=== PATIENT | female | born 1935 | race Caucasian/White ===

== ENCOUNTER 2018-06-27 11:40 | Inpatient (IN) | payer MEDICARE ==
[~2018-06-27] VITALS: Ht 170.2 cm; Wt 101.3 kg
[~2018-06-27 11:40] MED LIST: ACULAR5 ML OD; AMIODARONE HCL200 M1 PO; AMLODIPINE BESYL5 MG PO; ASPIR-LOW81 MG PO; ATORVASTATIN CA20 MG PO; CALCIUM + D 601 EAC1; CALCIUM + VITA1 EACH PO; CETIRIZINE HCL10 MG PO; CLARITIN10 M3 PO; COUMADIN2.5 MG PO; FUROSEMIDE40 MG PO; FUROSEMIDE80 MG PO; GLIMEPIRIDE2 MG PO; HEMOCYTE PLUS1 EACH PO; HYDROCHLOROTHIA25 MG PO; LEVAQUIN500 MG PO; METOPROLOL TART25 MG PO; METOPROLOL TART50 MG PO; MOBIC15 MG PO; PEPCID20 MG PO; POTASSIUM CHLO10 ME1 PO; POTASSIUM CHLO10 MEQ PO; PRED FORTE1 ML OD; VIGAMOX3 ML OD; WARFARIN SODIUM3 MG PO; WARFARIN SODIUM4 MG PO; Z.0.AMLODIPINE BESYL PO; Z.0.ASPIRIN CHEW81 M PO; Z.0.ATORVASTATIN CA2 PO; Z.0.CATAPRES0.2 MG PO; Z.0.COUMADIN5 MG PO; Z.0.DIGOXIN250 MCG PO; Z.0.DIOVAN320 MG PO; Z.0.GLIMEPIRIDE1 MG PO; Z.0.HYDROCHLOROTHIA2 PO; Z.0.LASIX40 MG PO; Z.0.METOPROLOL TART5 PO; ZAROXOLYN5 MG PO; [UNRECOGNIZED DRUG - OTHER]; [UNRECOGNIZED DRUG - OTHER] PO
[2018-06-27] MEDS ORDERED: VANCOMYCIN 1GM/NS 250 ML 250 ML IV STA (12:24)
[2018-06-27] MEDS ORDERED: HYDROCODONE/APAP 10MG-325MG TAB PO ONE (12:30)
--- NOTE | 2018-06-27 14:39 | Diagnostic Imaging Report ---
Exam: Right foot series, 3 views. Clinical History: Query osteomyelitis Comparison: None. Findings: 3 views of the right foot. There is normal bone mineralization. No evidence of fracture or acute malalignment. Hammertoe deformities noted. Possible erosion involving the great toe distal phalangeal tuft. No evidence of periosteal reaction or other bony destructive changes. Mild scattered degenerative changes in the interphalangeal joints.. Lis franc alignment is normal. Soft tissue edema in the hindfoot. Impression: Possible erosion involving the great toe distal phalangeal tuft, of uncertain chronicity. No evidence of periosteal reaction or other bony destructive change specific for osteomyelitis. If there is clinical suspicion for osteomyelitis, MRI would be more sensitive for evaluation. Soft tissue edema in the hindfoot. Signed by: Dr. Neftaly Guerrier MD on 06/27/2018 2:36 PM
[2018-06-27 14:57] LABS: BASOPHILS % 0.3 % (0.0-1.0); EOSINOPHILS # (AUTO) 0.1 (0.0-0.4); EOSINOPHILS % 0.5 % (0.0-6.0); HEMATOCRIT 40.4 % (34.2-44.1); HEMOGLOBIN 13.6 g/dL (12.0-16.0); LYMPHOCYTES # (AUTO) 1.2 (1.0-3.2); LYMPHOCYTES % 10.5 % (18.0-39.1); MEAN CORPUSCULAR HEMOGLOBIN 30.6 pg (28-32); MEAN CORPUSCULAR HGB CONC 33.7 g/dL (31-35); MEAN CORPUSCULAR VOLUME 90.8 fL (81-99); MONOCYTES # (AUTO) 0.9 (0.2-0.8); MONOCYTES % 7.4 % (4.4-11.3); NEUTROPHILS # (AUTO) 9.5 (2.1-6.9); NEUTROPHILS % 80.6 % (38.7-80.0); PLATELET COUNT 201 x10e3/uL (140-360); RED BLOOD COUNT 4.45 x10e6/uL (3.6-5.1); RED CELL DISTRIBUTION WIDTH 14.5 % (11.7-14.4)
[2018-06-27 15:44] LABS: ALBUMIN 3.4 g/dL (3.5-5.0); ALBUMIN/GLOBULIN RATIO 0.8 (0.8-2.0); ANION GAP 18.2 mmol/L (8-16); CALCIUM 10.7 mg/dL (8.4-10.2); CREATININE, SERUM 1.34 mg/dL (0.57-1.11); POTASSIUM 3.2 mmol/L (3.5-5.1)
[2018-06-27 15:46] LABS: INR 1.37
[2018-06-27] MEDS ORDERED: ONDANSETRON HCL INJ 2 MG/ML VIAL IV PRN (16:15)
[2018-06-27] MEDS ORDERED: SODIUM CHLORIDE FLUSH 10 ML SYR INJ PRN (16:15)
[2018-06-27] MEDS ORDERED: MORPHINE SULFATE 2 MG/ML SYR IV PRN (16:15)
[2018-06-27] MEDS ORDERED: POTASSIUM CHLORIDE 20 MEQ TAB CR PO ONE (16:21)
[2018-06-27] MEDS ORDERED: DEXTROSE 50% SYRINGE 50 ML IV PRN (16:45)
[2018-06-27] MEDS ORDERED: MORPHINE SULFATE INJ 4 MG/ML INJ IV PRN (16:45)
--- OUTSIDE RECORDS SUMMARY | 2018-06-27 18:21 | XMS REPORT ---
Author [facility] Address Unknown Phone Unavailable Care Team Providers Care Director Of Sports Performance Name Role Phone RANJEETSOBIA Agnieszka KAPLAN Unavailable Unavailable Problems This patient has no known problems. Allergies, Adverse Reactions, Alerts This patient has no known allergies or adverse reactions. Medications This patient has no known medications. Results Test Description Test Time Test Comments Text Results Atomic Results Result Comments FOOT RIGHT COMPLETE 2018-06-27 14:30:00 [place] [address] Patient Name: APRIL JACOB MR #: [id number] : 1935 Age/Sex: 82/F Req #: [id number] Adm Physician: Ordered by: LISANDRA HERNANDEZ MANAGER CONSTRUCTION Report #: [id number] Location: ER Room/Bed: Procedure: [id number] DX/FOOT RIGHT COMPLETE Exam Date: 06/27/18 Exam Time: 1405 REPORT STATUS: Signed Exam: Right foot series, 3 views. Clinical History: Query osteomyelitis Comparison: None. Findings: 3 views of the right foot. There is normal bone mineralization. No evidence of fracture or acute malalignment. Hammertoe deformities noted. Possible erosion involving the great toe distal phalangeal tuft. No evidence of periosteal reaction or other bony destructive changes. Mild scattered degenerative changes in the interphalangeal joints.. Lis franc alignment is normal. Soft tissue edema in the hindfoot. Impression: Possible erosion involving the great toe distal phalangeal tuft, of uncertain chronicity. No evidence of periosteal reaction or other bony destructive change specific for osteomyelitis. If there is clinical suspicion for osteomyelitis, MRI would be more sensitive for evaluation. Soft tissue edema in the hindfoot. Signed by: Dr. Linda Bucio MD on 06/27/2018 2:36 PM Dictated By: LINDA BUCIO MD [id number] Transcribed B y: SHENG on 06/27/18 1436 COPY TO: LISANDRA HERNANDEZ NP
[2018-06-27] MEDS ORDERED: DIOVAN80 MG PO (19:09)
[2018-06-27] MEDS ORDERED: METOPROLOL TARTRATE 25 MG TAB PO ONE (19:15)
[2018-06-27 19:50] VITALS: BP 95/57
[2018-06-27 20:00] VITALS: BP 95/57
[2018-06-27] MEDS: INSULIN REGULAR, HUMAN 100 UNIT/1 ML 3ML VIAL SQ SCH (21:00)
[2018-06-28] VITALS (7 sets, daily range): BP systolic 93–123; BP diastolic 49–58
[2018-06-28] MEDS ORDERED: SODIUM CHLORIDE 0.9% 250ML 250 ML ONE (01:30)
[2018-06-28] MEDS: VANCOMYCIN 1GM/NS 250 ML 250 ML IV SCH ×2 (01:32→15:08)
[2018-06-28 05:30] LABS: BASOPHILS % 0.3 % (0.0-1.0); EOSINOPHILS # (AUTO) 0.1 (0.0-0.4); EOSINOPHILS % 1.2 % (0.0-6.0); HEMOGLOBIN 11.1 g/dL (12.0-16.0); LYMPHOCYTES # (AUTO) 0.9 (1.0-3.2); LYMPHOCYTES % 9.8 % (18.0-39.1); MEAN CORPUSCULAR HEMOGLOBIN 30.3 pg (28-32); MEAN CORPUSCULAR HGB CONC 33.6 g/dL (31-35); MEAN CORPUSCULAR VOLUME 90.2 fL (81-99); MONOCYTES # (AUTO) 0.9 (0.2-0.8); MONOCYTES % 9.1 % (4.4-11.3); NEUTROPHILS # (AUTO) 7.4 (2.1-6.9); NEUTROPHILS % 79.1 % (38.7-80.0); PLATELET COUNT 163 x10e3/uL (140-360); RED BLOOD COUNT 3.66 x10e6/uL (3.6-5.1); RED CELL DISTRIBUTION WIDTH 14.1 % (11.7-14.4)
[2018-06-28 06:01] LABS: ALBUMIN 2.9 g/dL (3.5-5.0); ALBUMIN/GLOBULIN RATIO 0.9 (0.8-2.0); CALCIUM 9.4 mg/dL (8.4-10.2); CREATININE, SERUM 1.44 mg/dL (0.57-1.11)
[2018-06-28] MEDS: ATORVASTATIN 20 MG TAB PO SCH (08:45)
[2018-06-28] MEDS: FAMOTIDINE 20 MG TAB PO SCH (08:45)
[2018-06-28] MEDS: FUROSEMIDE 40 MG TAB PO SCH ×2 (08:45→17:07)
[2018-06-28] MEDS: METOLAZONE 5 MG TAB PO SCH (08:45)
[2018-06-28] MEDS: GLIMEPIRIDE 2 MG TAB PO SCH (08:46)
[2018-06-28] MEDS: POTASSIUM CHLORIDE 10MEQ EA PO SCH ×2 (08:48→17:07)
[2018-06-28] MEDS ORDERED: METOPROLOL TARTRATE 25 MG TAB PO SCH ×2 (09:00→17:00)
[2018-06-28] MEDS ORDERED: VALSARTAN 80 MG TAB PO SCH (09:00)
[2018-06-28] MEDS: INSULIN REGULAR, HUMAN 100 UNIT/1 ML 3ML VIAL SQ SCH ×4 (10:15→21:00)
[2018-06-28] MEDS ORDERED: PIPERACILLIN/TAZO 2.25 GM 50 ML IV SCH (14:00)
[2018-06-28] MEDS ORDERED: VANCOMYCIN HCL IV SCH (15:30)
[2018-06-28] MEDS ORDERED: SODIUM CHLORIDE 0.9% IV SCH (15:30)
[2018-06-28] MEDS ORDERED: CEFEPIME HCL 1 GM VIAL IV SCH (15:30)
--- NOTE | 2018-06-28 16:21 | Consultation ---
DATE OF CONSULTATION: REASON FOR CONSULTATION: Cellulitis of the right foot. Thank you so much for asking me to see this patient. HISTORY OF PRESENT ILLNESS: This patient is a very pleasant 82-year-old female with history of obesity, history of diabetes mellitus. The patient was admitted with redness and swelling of her right foot. There is no history of trauma, started about 3 to 4 days ago. Patient came to the emergency room where she was admitted. She was started on Zosyn and vancomycin. Infectious disease was consulted. MEDICATIONS: She is currently on insulin, Amaryl, Zaroxolyn, Lasix, Pepcid, Coumadin, and Lopressor. PAST MEDICAL HISTORY: Obesity, diabetes mellitus, hypertension, hypercholesterolemia. ALLERGIES: NKA. SOCIAL HISTORY: There is no smoking, drug abuse, or alcohol abuse. FAMILY HISTORY: Hypertension and diabetes. REVIEW OF SYSTEMS: At the present time; HEENT: Negative. PULMONARY: Negative. CARDIAC: Negative. : Negative. SKIN: There is no other rash. LABORATORY DATA: White count on admission 11.8, hemoglobin is 13.6. Sodium 135, potassium 4.0, creatinine 1.44, glucose 131. PHYSICAL EXAMINATION GENERAL: She is currently alert, oriented. Does not seem to be in acute distress. VITALS: Stable, currently afebrile. HEENT: She does not appear icteric. NECK: Supple. CHEST: Clear. COR: S1, S2. No S3, S4, or murmur. ABDOMEN: Soft, obese. No tenderness. No hepatosplenomegaly. EXTREMITIES: The leg, there is erythema. There is induration involving the right foot. IMPRESSION 1. Cellulitis of the right foot. 2. Chronic kidney disease. 3. Diabetes. 4. Obesity. Agree with vancomycin. Discontinue the cefepime. We will adjust vancomycin to 1 gram q.24. Follow up with levels. Obtain trough with the 4th dose. Recheck CBC. Recheck Chem panel. Other medical problems as above seem to be stable. We will follow. Job#: [id number] LPA
[2018-06-28] MEDS ORDERED: WARFARIN SOD 2.5 MG TAB PO SCH (17:00)
[2018-06-28] MEDS: CEFEPIME 1GM/NS 0.9% 50 ML 50 ML IV SCH (17:06)
[2018-06-28] MEDS: METOPROLOL TARTRATE 50 MG TAB PO SCH (17:08)
[2018-06-28] MEDS: WARFARIN SOD 2 MG TAB PO SCH (17:10)
--- NOTE | 2018-06-28 18:07 | Consultation ---
DATE OF CONSULTATION: CARDIOLOGY CONSULTATION REASON FOR CONSULTATION: Ventricular tachycardia. HISTORY OF PRESENT ILLNESS: This is an 82-year-old woman with a history of hypertension, hyperlipidemia, chronic atrial fibrillation on warfarin, congestive heart failure who presented with worsening right lower extremity cellulitis. Currently, she is denying any cardiovascular symptoms other than lower extremity swelling and pain of the right lower extremity. She denies any chest pain, palpitations, shortness of breath, or syncopal events. Overnight, patient was noted to have nonsustained ventricular tachycardia. She has chronic atrial fibrillation and rate controlled at home. She is on warfarin with no evidence of bleeding complications. REVIEW OF SYSTEMS: A 12-point review of systems was conducted and is negative otherwise as above in the HPI. PAST MEDICAL HISTORY: As stated above in the HPI. PAST SURGICAL HISTORY: None recently reported. PAST FAMILY HISTORY: No premature coronary artery disease or sudden cardiac . SOCIAL HISTORY: No illicit drug use, alcohol use, or tobacco use. ALLERGIES: NO KNOWN DRUG ALLERGIES. MEDICATIONS: See medication reconciliation form. PHYSICAL EXAMINATION VITAL SIGNS: Temperature is 98.1, heart rate is 95, respirations are 20, blood pressure is 102/49, oxygen saturation is 97% on room air. GENERAL: She is elderly woman, in no apparent distress. NECK: No JVD. No bruits. CARDIOVASCULAR: She is irregularly irregular, normal rate. No murmurs appreciated. LUNGS: Diminished breath sounds at bilateral bases. ABDOMEN: Soft and obese. EXTREMITIES: Edema. SKIN: There is right lower extremity cellulitis. NEUROLOGIC: No focal deficits noted. LABORATORY DATA: Reviewed. Potassium 4, creatinine 1.44. Hemoglobin 11. TELEMETRY: Monitoring revealed atrial fibrillation with ventricular response and nonsustained ventricular tachycardia. IMPRESSION 1. Nonsustained ventricular tachycardia. 2. Atrial fibrillation. 3. Hypertension. 4. Hyperlipidemia. 5. Congestive heart failure. 6. Cellulitis. Recommend decreasing her valsartan to allow up titration of metoprolol to better rate control and suppress arrhythmias. Please check magnesium and thyroid function panel. Continue warfarin for therapeutic anticoagulation. Otherwise, continue antibiotic treatments per primary team. Thank you for the consultation. We will follow along with you. Job#: [id number] YEISON
[2018-06-29] VITALS (7 sets, daily range): BP systolic 104–140; BP diastolic 51–71
[2018-06-29] MEDS: CEFEPIME 1GM/NS 0.9% 50 ML 50 ML IV SCH ×2 (03:51→16:23)
[2018-06-29] MEDS: FUROSEMIDE 40 MG TAB PO SCH ×3 (05:00→21:13)
[2018-06-29 05:14] LABS: BASOPHILS % 0.5 % (0.0-1.0); EOSINOPHILS # (AUTO) 0.2 (0.0-0.4); EOSINOPHILS % 1.8 % (0.0-6.0); HEMATOCRIT 34.9 % (34.2-44.1); HEMOGLOBIN 11.6 g/dL (12.0-16.0); LYMPHOCYTES # (AUTO) 0.8 (1.0-3.2); LYMPHOCYTES % 9.5 % (18.0-39.1); MEAN CORPUSCULAR HEMOGLOBIN 30.4 pg (28-32); MEAN CORPUSCULAR HGB CONC 33.2 g/dL (31-35); MEAN CORPUSCULAR VOLUME 91.4 fL (81-99); MONOCYTES # (AUTO) 0.7 (0.2-0.8); MONOCYTES % 8.7 % (4.4-11.3); NEUTROPHILS # (AUTO) 6.6 (2.1-6.9); NEUTROPHILS % 79.1 % (38.7-80.0); PLATELET COUNT 149 x10e3/uL (140-360); RED BLOOD COUNT 3.82 x10e6/uL (3.6-5.1); RED CELL DISTRIBUTION WIDTH 14.1 % (11.7-14.4)
[2018-06-29 05:27] LABS: INR 1.39; PROTHROMBIN TIME 18.2 seconds (11.9-14.5)
[2018-06-29 06:14] LABS: ANION GAP 15.7 mmol/L (8-16); CALCIUM 9.4 mg/dL (8.4-10.2); CREATININE, SERUM 1.51 mg/dL (0.57-1.11)
[2018-06-29 06:27] LABS: POTASSIUM 2.7 mmol/L (3.5-5.1)
[2018-06-29] MEDS ORDERED: POTASSIUM CHLORIDE 20 MEQ TAB CR PO NR ×2 (06:45→11:00)
[2018-06-29] MEDS: INSULIN REGULAR, HUMAN 100 UNIT/1 ML 3ML VIAL SQ SCH ×4 (07:30→21:46)
[2018-06-29] MEDS: POTASSIUM CHLORIDE 10MEQ EA PO SCH ×2 (08:38→16:50)
[2018-06-29] MEDS: METOLAZONE 5 MG TAB PO SCH (08:44)
[2018-06-29] MEDS: GLIMEPIRIDE 2 MG TAB PO SCH (08:44)
[2018-06-29] MEDS: ATORVASTATIN 20 MG TAB PO SCH (08:44)
[2018-06-29] MEDS: VALSARTAN 80 MG TAB PO SCH (08:44)
[2018-06-29] MEDS: METOPROLOL TARTRATE 50 MG TAB PO SCH ×2 (08:44→16:51)
[2018-06-29] MEDS: FAMOTIDINE 20 MG TAB PO SCH (08:44)
[2018-06-29] MEDS ORDERED: ACETAMINOPHEN 325 MG TAB PO PRN (13:15)
--- NOTE | 2018-06-29 13:28 | Progress Note ---
DATE: June 29, 2018 CARDIOLOGY PROGRESS NOTE SUBJECTIVE: No major events overnight. Denies any chest pain or shortness of breath. OBJECTIVE VITAL SIGNS: Temperature 97.9, pulse 93, respiratory rate 20, blood pressure 104/51, satting 96% on room air. GENERAL: Obese elderly white female in no acute distress. CARDIOVASCULAR: Difficult exam due to body habitus. Regular rate and rhythm. No murmurs, rubs or gallops. Palpable carotid pulses. Palpable radial pulses. EXTREMITIES: Two plus lower extremity edema with lymphedema changes. LUNGS: Diminished breath sounds in bilateral bases. ABDOMEN: Soft, obese and nontender. NEURO AND PSYCH: Alert and oriented to person, place, and time. Normal affect. MEDICATIONS: Reviewed. LABORATORY DATA: Reviewed. Telemetry data shows atrial fibrillation. Nonsustained VT. ASSESSMENT AND PLAN 1. Nonsustained ventricular tachycardia. 2. Atrial fibrillation, chronic. 3. Hypertension. 4. Hyperlipidemia. 5. Chronic congestive heart failure. 6. Lower extremity cellulitis. 7. Lower extremity edema. Continue current cardiovascular medications. Gentle diuretics and wraps to manage lower extremity edema. Continue warfarin for atrial fibrillation. Antibiotics per primary team. Thank you for this consult. Will continue to follow. Job#: [id number] RIYA
[2018-06-29] MEDS ORDERED: VANCOMYCIN 1GM/NS 250 ML 250 ML IV SCH (15:00)
[2018-06-29] MEDS: WARFARIN SOD 2 MG TAB PO SCH (16:50)
[2018-06-30] VITALS (8 sets, daily range): BP systolic 98–135; BP diastolic 54–61
[2018-06-30] MEDS: CEFEPIME 1GM/NS 0.9% 50 ML 50 ML IV SCH ×2 (03:36→17:30)
[2018-06-30 06:20] LABS: ANION GAP 14.4 mmol/L (8-16); CALCIUM 9.4 mg/dL (8.4-10.2); CREATININE, SERUM 1.18 mg/dL (0.57-1.11)
[2018-06-30 06:45] LABS: POTASSIUM 2.4 mmol/L (3.5-5.1)
[2018-06-30] MEDS: INSULIN REGULAR, HUMAN 100 UNIT/1 ML 3ML VIAL SQ SCH ×4 (07:30→21:00)
[2018-06-30 08:19] LABS: BASOPHILS % 0.5 % (0.0-1.0); EOSINOPHILS # (AUTO) 0.2 (0.0-0.4); EOSINOPHILS % 2.1 % (0.0-6.0); HEMATOCRIT 34.3 % (34.2-44.1); HEMOGLOBIN 11.7 g/dL (12.0-16.0); LYMPHOCYTES # (AUTO) 0.7 (1.0-3.2); LYMPHOCYTES % 8.5 % (18.0-39.1); MEAN CORPUSCULAR HGB CONC 34.1 g/dL (31-35); MEAN CORPUSCULAR VOLUME 90.7 fL (81-99); MONOCYTES # (AUTO) 0.7 (0.2-0.8); MONOCYTES % 9.4 % (4.4-11.3); NEUTROPHILS # (AUTO) 6.1 (2.1-6.9); NEUTROPHILS % 78.9 % (38.7-80.0); PLATELET COUNT 166 x10e3/uL (140-360); RED BLOOD COUNT 3.78 x10e6/uL (3.6-5.1); RED CELL DISTRIBUTION WIDTH 14.1 % (11.7-14.4)
[2018-06-30] MEDS: POTASSIUM CHLORIDE 10MEQ EA PO SCH ×2 (09:05→16:33)
[2018-06-30] MEDS: METOLAZONE 5 MG TAB PO SCH (09:05)
[2018-06-30] MEDS: FUROSEMIDE 40 MG TAB PO SCH ×2 (09:05→21:00)
[2018-06-30] MEDS: METOPROLOL TARTRATE 50 MG TAB PO SCH ×2 (09:05→16:34)
[2018-06-30] MEDS: VALSARTAN 80 MG TAB PO SCH (09:05)
[2018-06-30] MEDS: FAMOTIDINE 20 MG TAB PO SCH (09:05)
[2018-06-30] MEDS: GLIMEPIRIDE 2 MG TAB PO SCH (09:05)
[2018-06-30] MEDS: ATORVASTATIN 20 MG TAB PO SCH (09:05)
[2018-06-30] MEDS ORDERED: POTASSIUM CHLORIDE 20 MEQ TAB CR PO STA (09:46)
[2018-06-30] MEDS ORDERED: MAGNESIUM SULFATE 2GM/50ML 50 ML IV ONE ×2 (10:00→14:00)
[2018-06-30] MEDS: POTASSIUM CHLORIDE 20 MEQ TAB CR PO SCH (14:23)
[2018-06-30] MEDS: WARFARIN SOD 2 MG TAB PO SCH (16:33)
[2018-06-30] MEDS: VANCOMYCIN 1GM/NS 250 ML 250 ML IV SCH (18:20)
[2018-06-30] MEDS ORDERED: POTASSIUM CHLORIDE 20 MEQ TAB CR PO SCH (22:00)
[2018-07-01] VITALS (7 sets, daily range): BP systolic 112–135; BP diastolic 56–66
[2018-07-01] MEDS: CEFEPIME 1GM/NS 0.9% 50 ML 50 ML IV SCH ×2 (03:36→16:10)
[2018-07-01 06:11] LABS: ALBUMIN 2.9 g/dL (3.5-5.0); ALBUMIN/GLOBULIN RATIO 0.7 (0.8-2.0); ANION GAP 14.8 mmol/L (8-16); CALCIUM 9.5 mg/dL (8.4-10.2); CREATININE, SERUM 1.31 mg/dL (0.57-1.11)
[2018-07-01 06:21] LABS: POTASSIUM 2.8 mmol/L (3.5-5.1)
[2018-07-01] MEDS: INSULIN REGULAR, HUMAN 100 UNIT/1 ML 3ML VIAL SQ SCH ×4 (07:30→20:48)
[2018-07-01] MEDS: VALSARTAN 80 MG TAB PO SCH (09:06)
[2018-07-01] MEDS: ATORVASTATIN 20 MG TAB PO SCH (09:06)
[2018-07-01] MEDS: POTASSIUM CHLORIDE 10MEQ EA PO SCH ×2 (09:06→16:10)
[2018-07-01] MEDS: GLIMEPIRIDE 2 MG TAB PO SCH (09:06)
[2018-07-01] MEDS: FUROSEMIDE 40 MG TAB PO SCH ×2 (09:06→20:47)
[2018-07-01] MEDS: METOLAZONE 5 MG TAB PO SCH (09:07)
[2018-07-01] MEDS: METOPROLOL TARTRATE 50 MG TAB PO SCH ×2 (09:07→16:10)
[2018-07-01] MEDS: FAMOTIDINE 20 MG TAB PO SCH (09:07)
[2018-07-01] MEDS ORDERED: POTASSIUM CHLORIDE 20 MEQ TAB CR PO STA (13:56)
--- NOTE | 2018-07-01 16:05 | Progress Note ---
DATE: July 01, 2018 CARDIOLOGY PROGRESS NOTE SUBJECTIVE: No major events overnight. OBJECTIVE VITAL SIGNS: Temperature 97.7, pulse 78, respiratory rate 18, blood pressure 121/62, satting 99%. GENERAL: Elderly white female in no acute distress. CARDIOVASCULAR: Regular rate and rhythm. No murmurs, rubs or gallops. LUNGS: Clear to auscultation bilaterally. ABDOMEN: Soft, obese, nontender. NEURO AND PSYCH: Alert and oriented to person, place and time. Normal affect. INPATIENT MEDICATIONS: Reviewed. LABORATORY DATA: Reviewed. TELEMETRY DATA: Reviewed. Shows atrial fibrillation, rate controlled. ASSESSMENT AND PLAN 1. Nonsustained ventricular tachycardia. 2. Atrial fibrillation, chronic. 3. Hypertension. 4. Hyperlipidemia. 5. Chronic diastolic congestive heart failure. 6. Lower extremity cellulitis. 7. Lower extremity edema. PLAN: Continue current cardiovascular medications. Gentle diuretics and wraps to manage lower extremity edema. Continue warfarin for anticoagulation. Antibiotics per primary team. Thank you for this consult. We will continue to follow. Job#: [id number]
[2018-07-01] MEDS: WARFARIN SOD 2 MG TAB PO SCH (16:10)
[2018-07-01] MEDS: VANCOMYCIN 1GM/NS 250 ML 250 ML IV SCH (17:20)
[2018-07-01] MEDS ORDERED: POTASSIUM CHLORIDE 20 MEQ TAB CR PO ONE (18:00)
[2018-07-02] VITALS (7 sets, daily range): BP systolic 97–149; BP diastolic 56–73
[2018-07-02] MEDS: CEFEPIME 1GM/NS 0.9% 50 ML 50 ML IV SCH ×2 (03:19→16:18)
[2018-07-02 06:46] LABS: ANION GAP 15.7 mmol/L (8-16); CALCIUM 9.5 mg/dL (8.4-10.2); CREATININE, SERUM 1.21 mg/dL (0.57-1.11); MAGNESIUM 1.7 MG/DL (1.3-2.1)
[2018-07-02 06:59] LABS: POTASSIUM 2.7 mmol/L (3.5-5.1)
[2018-07-02] MEDS: INSULIN REGULAR, HUMAN 100 UNIT/1 ML 3ML VIAL SQ SCH ×4 (07:30→21:00)
[2018-07-02] MEDS ORDERED: POTASSIUM CHLORIDE 20 MEQ TAB CR PO SCH (07:45)
[2018-07-02] MEDS: FAMOTIDINE 20 MG TAB PO SCH (08:59)
[2018-07-02] MEDS: ATORVASTATIN 20 MG TAB PO SCH (08:59)
[2018-07-02] MEDS: METOLAZONE 5 MG TAB PO SCH (08:59)
[2018-07-02] MEDS: METOPROLOL TARTRATE 50 MG TAB PO SCH ×2 (08:59→17:18)
[2018-07-02] MEDS: VALSARTAN 80 MG TAB PO SCH (09:00)
[2018-07-02] MEDS: GLIMEPIRIDE 2 MG TAB PO SCH (09:00)
[2018-07-02] MEDS: FUROSEMIDE 40 MG TAB PO SCH ×2 (09:00→21:00)
[2018-07-02] MEDS: POTASSIUM CHLORIDE 10MEQ EA PO SCH ×2 (09:00→17:53)
[2018-07-02] MEDS ORDERED: POTASSIUM CHLORIDE 10MEQ EA PO ONE (10:30)
--- NOTE | 2018-07-02 10:49 | Progress Note ---
DATE: SUBJECTIVE: The patient is here for cellulitis of the right lower extremities, currently no complaints, hard of hearing. No nausea, vomiting, or diarrhea. No chest pain. No shortness of breath. PHYSICAL EXAMINATION VITAL SIGNS: Temperature is 96.2, pulse of 82, respirations of 20, blood pressure 129/58, with a pulse oximetry of 97%. HEENT: Normocephalic and atraumatic. CVS: S1 and S2 normal. Regular rate and rhythm. ABDOMEN: Nontender and nondistended. EXTREMITIES: Right lower extremity cellulitis much better. The patient has some erythema and tenderness in the toes; otherwise, calf and ankle erythema has come down. LABORATORY VALUES: White count is 7.7, hemoglobin of 11.7, hematocrit of 34. Chemistries; sodium of 133, potassium of 2.7 which we will replace, BUN is 42, creatinine of 1.21. ASSESSMENT AND PLAN 1. Cellulitis of the right lower extremity. The patient is on vancomycin. We will continue the same and cefepime. 2. Acute kidney injury. We will continue monitoring the patient and continue fluids. 3. Hyperkalemia, replace potassium. 4. Patient is anticoagulated. Anticoagulation for atrial fibrillation. She also has history of congestive heart failure. Continue on diuretics. 5. Diabetes. Continue on insulin sliding scale and glimepiride. Further recommendation per clinical course. We will continue monitoring the patient. The patient possibly will need SNF and/or LTAC. We will continue monitoring her along with the consultants. Blood cultures have been so far negative and we will do vancomycin trough at this time. Job#: [id number] KATINA
[2018-07-02] MEDS: VANCOMYCIN 1GM/NS 250 ML 250 ML IV SCH ×2 (17:00→17:20)
[2018-07-02] MEDS ORDERED: POTASSIUM CHLORIDE 20 MEQ TAB CR PO ONE (17:00)
[2018-07-02] MEDS: WARFARIN SOD 2 MG TAB PO SCH (17:20)
--- NOTE | 2018-07-02 18:55 | Progress Note ---
DATE: July 02, 2018 CARDIOLOGY PROGRESS NOTE SUBJECTIVE: Patient denies chest pain or shortness of breath. OBJECTIVE VITAL SIGNS: Temperature 97.1 degrees, pulse 78, respiratory rate 18, blood pressure 97/56, oxygen saturation 95% on room air. GENERAL: Awake, alert, no acute distress. LUNGS: Clear to auscultation bilaterally. No wheezes or crackles. CARDIOVASCULAR: Normal rate. Irregularly irregular. No murmur. ABDOMEN: Soft, nontender. EXTREMITIES: No edema. CARDIAC MEDICATIONS 1. Furosemide 40 mg p.o. q.12 hours. 2. Valsartan 160 mg p.o. daily. 3. Metoprolol tartrate 50 mg p.o. b.i.d. 4. Metolazone 5 mg p.o. daily. 5. Atorvastatin 20 mg p.o. daily. 6. Warfarin 4 mg p.o. daily. LABS: Sodium 133, potassium 2.7, chloride 94, CO2 of 26, BUN 42, creatinine 1.21. TELEMETRY: Atrial fibrillation. IMPRESSION 1. Nonsustained ventricular tachycardia. 2. Atrial fibrillation, chronic. 3. Hypertension. 4. Hyperlipidemia. 5. Chronic diastolic heart failure. 6. Lower extremity cellulitis and edema. RECOMMENDATIONS: Continue current cardiac medications. Replete electrolytes. Recommend compression wrapping of the patient's lower extremity edema. Continue warfarin for anticoagulation. Monitor INR. Antibiotics per primary service. Thank you for this consult. We will continue to follow. Job#: [id number] MARIANNE
[2018-07-02 19:53] LABS: INR 1.47; PROTHROMBIN TIME 19.1 seconds (11.9-14.5)
[2018-07-03] VITALS (7 sets, daily range): BP systolic 104–134; BP diastolic 53–69
[2018-07-03] MEDS: CEFEPIME 1GM/NS 0.9% 50 ML 50 ML IV SCH ×2 (03:43→17:16)
[2018-07-03 06:37] LABS: BASOPHILS % 0.5 % (0.0-1.0); EOSINOPHILS # (AUTO) 0.2 (0.0-0.4); EOSINOPHILS % 3.7 % (0.0-6.0); HEMATOCRIT 36.2 % (34.2-44.1); HEMOGLOBIN 12.1 g/dL (12.0-16.0); LYMPHOCYTES # (AUTO) 0.8 (1.0-3.2); LYMPHOCYTES % 11.9 % (18.0-39.1); MEAN CORPUSCULAR HEMOGLOBIN 30.3 pg (28-32); MEAN CORPUSCULAR HGB CONC 33.4 g/dL (31-35); MEAN CORPUSCULAR VOLUME 90.7 fL (81-99); MONOCYTES # (AUTO) 0.8 (0.2-0.8); MONOCYTES % 12.9 % (4.4-11.3); NEUTROPHILS # (AUTO) 4.6 (2.1-6.9); NEUTROPHILS % 70.2 % (38.7-80.0); PLATELET COUNT 169 x10e3/uL (140-360); RED BLOOD COUNT 3.99 x10e6/uL (3.6-5.1); RED CELL DISTRIBUTION WIDTH 13.9 % (11.7-14.4)
[2018-07-03 07:01] LABS: ALBUMIN 2.8 g/dL (3.5-5.0); ALBUMIN/GLOBULIN RATIO 0.7 (0.8-2.0); ANION GAP 12.8 mmol/L (8-16); CALCIUM 9.7 mg/dL (8.4-10.2); CREATININE, SERUM 1.12 mg/dL (0.57-1.11)
[2018-07-03 07:03] LABS: POTASSIUM 2.8 mmol/L (3.5-5.1)
[2018-07-03] MEDS: INSULIN REGULAR, HUMAN 100 UNIT/1 ML 3ML VIAL SQ SCH ×4 (07:30→20:49)
[2018-07-03] MEDS: FUROSEMIDE 40 MG TAB PO SCH ×2 (08:15→20:49)
[2018-07-03] MEDS: ATORVASTATIN 20 MG TAB PO SCH (08:15)
[2018-07-03] MEDS: POTASSIUM CHLORIDE 10MEQ EA PO SCH ×2 (08:15→17:05)
[2018-07-03] MEDS: GLIMEPIRIDE 2 MG TAB PO SCH (08:15)
[2018-07-03] MEDS: VALSARTAN 80 MG TAB PO SCH (08:15)
[2018-07-03] MEDS: METOLAZONE 5 MG TAB PO SCH (08:16)
[2018-07-03] MEDS: METOPROLOL TARTRATE 50 MG TAB PO SCH ×2 (08:16→17:05)
[2018-07-03] MEDS: FAMOTIDINE 20 MG TAB PO SCH (08:16)
--- NOTE | 2018-07-03 10:00 | Progress Note ---
DATE: SUBJECTIVE: The patient is here for right lower extremity infection. Currently, doing well with no complaints noted. The patient has no chest pain. No shortness of breath. OBJECTIVE VITAL SIGNS: Temperature is 98, pulse of 76, respirations of 20, blood pressure is 108/53, and pulse oximetry 98%. HEENT: Normocephalic, atraumatic. Pupils are reactive to light and accommodation. CVS: S1 and S2 normal. Irregularly irregular. No murmurs present. EXTREMITIES: No clubbing. No cyanosis. Erythema in the right lower extremity has markedly decreased. MEDICATIONS: The patient is on cefepime and vancomycin for cellulitis. The patient is also anticoagulated for atrial fibrillation with warfarin. The rest of CV medicine and diabetic medications remained the same. ASSESSMENT AND PLAN 1. Cellulitis of the right lower extremity. Continue with cefepime and vancomycin. 2. Acute kidney injury. We will continue monitoring the patient's fluids. 3. Atrial fibrillation. Continue with anticoagulation. 4. Diabetes. Continue with diabetic medications. 5. Chronic diastolic dysfunction. Continue with monitoring fluids and electrolytes. Job#: [id number] KATINA
[2018-07-03] MEDS: POTASSIUM CHLORIDE 20 MEQ TAB CR PO SCH (12:18)
--- NOTE | 2018-07-03 13:46 | Progress Note ---
DATE: July 03, 2018 CARDIOLOGY PROGRESS NOTE SUBJECTIVE: Patient denies chest pain or shortness of breath. OBJECTIVE VITAL SIGNS: Temperature 98 degrees, pulse 76, respiratory rate 20, blood pressure 108/53, oxygen saturation 98%. GENERAL: Awake, alert, no acute distress. LUNGS: Clear to auscultation bilaterally. No wheezes or crackles. CARDIOVASCULAR: Normal rate. Irregularly irregular. No murmur. Normal S1, S2. ABDOMEN: Soft, nontender. EXTREMITIES: 1+ pitting edema. CARDIAC MEDICATIONS 1. Metoprolol tartrate 50 mg p.o. b.i.d. 2. Metolazone 5 mg p.o. daily. 3. Furosemide 40 mg p.o. q.12 hours. 4. Valsartan 160 mg p.o. daily. 5. Atorvastatin 20 mg p.o. q.h.s. 6. Warfarin 4 mg p.o. daily. LABS: WBC 6.49, hemoglobin 12.1, hematocrit 36.2, platelets 169. Sodium 133, potassium 2.8, chloride 96, CO2 of 27, BUN 41, creatinine 1.12. TELEMETRY: Atrial fibrillation, rate controlled. IMPRESSION 1. Nonsustained ventricular tachycardia. 2. Atrial fibrillation, chronic. 3. Hypertension. 4. Hyperlipidemia. 5. Chronic diastolic heart failure. 6. Left lower extremity cellulitis and edema. RECOMMENDATIONS: Continue current cardiac medications. Replete electrolytes. Recommend compression wrapping on the patient's lower extremity edema. Continue warfarin for anticoagulation. Monitor INR, it is currently subtherapeutic. If it remains subtherapeutic through the week, we will need to increase her warfarin dose. Antibiotics per primary service. Thank you for this consult. We will continue to follow. Job#: [id number] SERA
[2018-07-03] MEDS: WARFARIN SOD 2 MG TAB PO SCH (16:56)
[2018-07-03] MEDS: VANCOMYCIN 1GM/NS 250 ML 250 ML IV SCH (17:00)
[2018-07-04] VITALS (8 sets, daily range): BP systolic 105–125; BP diastolic 52–62
[2018-07-04] MEDS: CEFEPIME 1GM/NS 0.9% 50 ML 50 ML IV SCH ×2 (03:02→17:05)
[2018-07-04 05:25] LABS: BASOPHILS % 0.6 % (0.0-1.0); EOSINOPHILS # (AUTO) 0.3 (0.0-0.4); EOSINOPHILS % 3.9 % (0.0-6.0); HEMATOCRIT 37.3 % (34.2-44.1); HEMOGLOBIN 12.6 g/dL (12.0-16.0); LYMPHOCYTES % 14.2 % (18.0-39.1); MEAN CORPUSCULAR HEMOGLOBIN 30.1 pg (28-32); MEAN CORPUSCULAR HGB CONC 33.8 g/dL (31-35); MONOCYTES # (AUTO) 0.8 (0.2-0.8); MONOCYTES % 11.1 % (4.4-11.3); NEUTROPHILS # (AUTO) 4.8 (2.1-6.9); NEUTROPHILS % 69.5 % (38.7-80.0); PLATELET COUNT 155 x10e3/uL (140-360); RED BLOOD COUNT 4.19 x10e6/uL (3.6-5.1); RED CELL DISTRIBUTION WIDTH 13.8 % (11.7-14.4)
[2018-07-04 05:43] LABS: INR 1.49; PROTHROMBIN TIME 19.3 seconds (11.9-14.5)
[2018-07-04 05:50] LABS: ANION GAP 16.8 mmol/L (8-16); CALCIUM 9.8 mg/dL (8.4-10.2); CREATININE, SERUM 1.12 mg/dL (0.57-1.11)
[2018-07-04 05:59] LABS: POTASSIUM 2.8 mmol/L (3.5-5.1)
[2018-07-04] MEDS: INSULIN REGULAR, HUMAN 100 UNIT/1 ML 3ML VIAL SQ SCH ×4 (07:30→21:23)
[2018-07-04] MEDS: GLIMEPIRIDE 2 MG TAB PO SCH (08:56)
[2018-07-04] MEDS: VALSARTAN 80 MG TAB PO SCH (08:56)
[2018-07-04] MEDS: POTASSIUM CHLORIDE 10MEQ EA PO SCH ×2 (08:57→17:08)
[2018-07-04] MEDS: METOPROLOL TARTRATE 50 MG TAB PO SCH ×2 (08:57→17:08)
[2018-07-04] MEDS: FAMOTIDINE 20 MG TAB PO SCH (08:57)
[2018-07-04] MEDS: METOLAZONE 5 MG TAB PO SCH (08:57)
[2018-07-04] MEDS: FUROSEMIDE 40 MG TAB PO SCH ×2 (08:57→21:00)
[2018-07-04] MEDS: ATORVASTATIN 20 MG TAB PO SCH (08:57)
[2018-07-04] MEDS ORDERED: POTASSIUM CHLORIDE 10MEQ EA PO SCH (09:00)
[2018-07-04] MEDS: WARFARIN SOD 2 MG TAB PO SCH (17:07)
[2018-07-04] MEDS: VANCOMYCIN 1GM/NS 250 ML 250 ML IV SCH (17:58)
[2018-07-05] VITALS (7 sets, daily range): BP systolic 95–130; BP diastolic 50–76
--- NOTE | 2018-07-05 00:24 | Progress Note ---
DATE: July 04, 2018 CARDIOLOGY PROGRESS NOTE SUBJECTIVE: Patient denies chest pain or shortness of breath. OBJECTIVE VITAL SIGNS: Temperature 97.8 degrees, pulse 82, respiratory rate 18, blood pressure 105/52, oxygen saturation 97%. GENERAL: Awake, alert. No acute distress. LUNGS: Clear to auscultation bilaterally. No wheezes or crackles. CARDIOVASCULAR: Normal rate. Irregularly irregular. No murmur. Normal S1, S2. ABDOMEN: Soft, nontender. EXTREMITIES: 1+ pitting edema. CARDIAC MEDICATIONS 1. Metoprolol tartrate 50 mg p.o. b.i.d. 2. Warfarin 4 mg p.o. daily. 3. Metolazone 5 mg p.o. daily. 4. Atorvastatin 20 mg p.o. daily. 5. Valsartan 160 mg p.o. daily. 6. Furosemide 40 mg p.o. q.12 h. LABS: WBC 6.85, hemoglobin 12.6, hematocrit 37.3, platelets 155,000. Sodium 135, potassium 2.8, chloride 96, CO2 of 25, BUN 44, creatinine 1.12. INR 1.49. TELEMETRY: Atrial fibrillation. IMPRESSION 1. Nonsustained ventricular tachycardia. 2. Atrial fibrillation, chronic. 3. Hypertension. 4. Hyperlipidemia. 5. Chronic diastolic heart failure. 6. Left lower extremity cellulitis and edema. RECOMMENDATIONS: We will increase warfarin given subtherapeutic INR despite several doses of warfarin. Continue current cardiac medications. Otherwise replete electrolytes. Recommend compression wrapping on the patient's lower extremity edema. Antibiotics per primary service. Thank you for this consult. We will continue to follow. Job#: [id number]
[2018-07-05] MEDS: CEFEPIME 1GM/NS 0.9% 50 ML 50 ML IV SCH ×2 (04:42→20:38)
[2018-07-05 05:59] LABS: ALBUMIN 2.7 g/dL (3.5-5.0); ALBUMIN/GLOBULIN RATIO 0.7 (0.8-2.0); CALCIUM 9.6 mg/dL (8.4-10.2); CREATININE, SERUM 1.3 mg/dL (0.57-1.11)
[2018-07-05] MEDS: INSULIN REGULAR, HUMAN 100 UNIT/1 ML 3ML VIAL SQ SCH ×4 (07:30→20:39)
[2018-07-05] MEDS: POTASSIUM CHLORIDE 10MEQ EA PO SCH ×2 (08:22→16:45)
[2018-07-05] MEDS: GLIMEPIRIDE 2 MG TAB PO SCH (08:23)
[2018-07-05] MEDS: FUROSEMIDE 40 MG TAB PO SCH ×2 (08:23→20:38)
[2018-07-05] MEDS: METOLAZONE 5 MG TAB PO SCH (08:23)
[2018-07-05] MEDS: VALSARTAN 80 MG TAB PO SCH (08:23)
[2018-07-05] MEDS: ATORVASTATIN 20 MG TAB PO SCH (08:23)
[2018-07-05] MEDS: FAMOTIDINE 20 MG TAB PO SCH (08:23)
[2018-07-05] MEDS: METOPROLOL TARTRATE 50 MG TAB PO SCH ×2 (08:24→16:45)
[2018-07-05] MEDS: POTASSIUM CHLORIDE 20 MEQ TAB CR PO SCH (09:26)
--- NOTE | 2018-07-05 12:44 | Progress Note ---
DATE: July 05, 2018 CARDIOLOGY PROGRESS NOTE SUBJECTIVE: Patient denies chest pain or shortness of breath. OBJECTIVE VITAL SIGNS: Temperature 95.6 degrees, pulse 56, respiratory rate 18, blood pressure 113/56, oxygen saturation 95% on room air. GENERAL: Awake, alert, in no acute distress. LUNGS: Clear to auscultation bilaterally. No wheezes or crackles. CARDIOVASCULAR: Normal rate, irregularly irregular. No murmur. Normal S1 and S2. ABDOMEN: Soft, nontender. EXTREMITIES: 1+ pitting edema. CARDIAC MEDICATIONS 1. Metoprolol tartrate 50 mg p.o. b.i.d. 2. Furosemide 40 mg p.o. q.12 h. 3. Valsartan 160 mg p.o. daily. 4. Metolazone 5 mg p.o. daily. 5. Atorvastatin 20 mg p.o. nightly. 6. Warfarin 5 mg p.o. daily. LABS: WBC 6.85, hemoglobin 12.6, hematocrit 37.3, platelets 155. Sodium 136, potassium 3, chloride 99, CO2 25, BUN 44, creatinine 1.3. TELEMETRY: Atrial fibrillation, rate controlled. IMPRESSION 1. Nonsustained ventricular tachycardia. 2. Atrial fibrillation, chronic. 3. Hypertension. 4. Hyperlipidemia. 5. Chronic diastolic heart failure. 6. Left lower extremity cellulitis and edema. RECOMMENDATIONS: Continue current cardiac medications. Warfarin was increased due to subtherapeutic INR. Replete electrolytes. Recommend compression wrapping of the patient's lower extremities. Antibiotics per primary service. Thank you for this consult. We will continue to follow. Job#: [id number] EV
[2018-07-05] MEDS: WARFARIN SOD 5 MG TAB PO SCH (16:44)
[2018-07-05] MEDS: VANCOMYCIN 1GM/NS 250 ML 250 ML IV SCH (16:44)
[2018-07-05] MEDS ORDERED: WARFARIN SOD 2 MG TAB PO SCH (17:00)
[2018-07-06 00:35] VITALS: BP 104/52
[2018-07-06 04:00] VITALS: BP 117/64
[2018-07-06 05:46] LABS: BASOPHILS % 0.6 % (0.0-1.0); EOSINOPHILS # (AUTO) 0.2 (0.0-0.4); EOSINOPHILS % 3.2 % (0.0-6.0); HEMOGLOBIN 12.2 g/dL (12.0-16.0); LYMPHOCYTES # (AUTO) 0.8 (1.0-3.2); LYMPHOCYTES % 11.6 % (18.0-39.1); MEAN CORPUSCULAR HEMOGLOBIN 30.4 pg (28-32); MEAN CORPUSCULAR HGB CONC 33.9 g/dL (31-35); MEAN CORPUSCULAR VOLUME 89.8 fL (81-99); MONOCYTES # (AUTO) 0.8 (0.2-0.8); MONOCYTES % 11.2 % (4.4-11.3); NEUTROPHILS % 72.8 % (38.7-80.0); PLATELET COUNT 153 x10e3/uL (140-360); RED BLOOD COUNT 4.01 x10e6/uL (3.6-5.1); RED CELL DISTRIBUTION WIDTH 13.7 % (11.7-14.4)
[2018-07-06 05:54] LABS: INR 1.81; PROTHROMBIN TIME 22.4 seconds (11.9-14.5)
[2018-07-06 06:01] LABS: ALBUMIN 2.8 g/dL (3.5-5.0); ALBUMIN/GLOBULIN RATIO 0.8 (0.8-2.0); ANION GAP 12.3 mmol/L (8-16); CALCIUM 9.7 mg/dL (8.4-10.2); CREATININE, SERUM 1.37 mg/dL (0.57-1.11); POTASSIUM 3.3 mmol/L (3.5-5.1)
[2018-07-06] MEDS: INSULIN REGULAR, HUMAN 100 UNIT/1 ML 3ML VIAL SQ SCH ×4 (07:30→21:00)
[2018-07-06 08:00] VITALS: BP 110/58
[2018-07-06] MEDS: CEFEPIME 1GM/NS 0.9% 50 ML 50 ML IV SCH ×2 (08:00→20:00)
[2018-07-06] MEDS: ATORVASTATIN 20 MG TAB PO SCH (09:00)
[2018-07-06] MEDS: METOLAZONE 5 MG TAB PO SCH (09:00)
[2018-07-06] MEDS: POTASSIUM CHLORIDE 20 MEQ TAB CR PO SCH (09:00)
[2018-07-06] MEDS: METOPROLOL TARTRATE 50 MG TAB PO SCH ×2 (09:00→16:58)
[2018-07-06] MEDS: GLIMEPIRIDE 2 MG TAB PO SCH (09:00)
[2018-07-06] MEDS: FUROSEMIDE 40 MG TAB PO SCH ×2 (09:00→21:00)
[2018-07-06] MEDS: FAMOTIDINE 20 MG TAB PO SCH (09:00)
[2018-07-06] MEDS: VALSARTAN 80 MG TAB PO SCH (09:00)
[2018-07-06] MEDS: POTASSIUM CHLORIDE 10MEQ EA PO SCH ×2 (09:00→16:57)
[2018-07-06 12:00] VITALS: BP 135/63
[2018-07-06 16:00] VITALS: BP 125/83
[2018-07-06] MEDS: WARFARIN SOD 5 MG TAB PO SCH (16:55)
[2018-07-06] MEDS: VANCOMYCIN 1GM/NS 250 ML 250 ML IV SCH (17:00)
--- NOTE | 2018-07-06 19:52 | Progress Note ---
DATE: July 06, 2018 CARDIOLOGY PROGRESS NOTE SUBJECTIVE: Patient denies chest pain or shortness of breath. OBJECTIVE: VITAL SIGNS: Temperature 96.8 degrees, pulse 100, respiratory rate 20, blood pressure 135/63, oxygen saturation 98% on room air. GENERAL: Awake and alert, in no acute distress. LUNGS: Clear to auscultation bilaterally. No wheezes or crackles. CARDIOVASCULAR: Normal rate, irregularly irregular. No murmur. Normal S1 and S2. ABDOMEN: Soft, nontender. EXTREMITIES: 1+ pitting edema. CARDIAC MEDICATIONS: Metoprolol tartrate 50 mg p.o. b.i.d., warfarin 5 mg p.o. daily, furosemide 40 mg p.o. q.12h., valsartan 160 mg p.o. daily, metolazone 5 mg p.o. daily, atorvastatin 20 mg p.o. nightly. LABS: WBC 6.88, hemoglobin 12.2, hematocrit 36, platelets 153,000. Sodium 133, potassium 3.3, chloride 98, CO2 26, BUN 49, creatinine 1.37. INR 1.81. TELEMETRY: Atrial fibrillation. IMPRESSION: 1. Nonsustained ventricular tachycardia. 2. Atrial fibrillation, chronic. 3. Hypertension. 4. Hyperlipidemia. 5. Chronic diastolic heart failure. 6. Lower extremity cellulitis and edema. RECOMMENDATIONS: Continue current cardiac medications. Warfarin was increased due to subtherapeutic INR. INR is now rising, we will continue to follow. Replete electrolytes. Recommend compression wrapping of patient's lower extremities. Antibiotics per primary service. Thank you for this consult. We will continue to follow. Job#: [id number]
[2018-07-06 20:00] VITALS: BP 134/54
[2018-07-07] VITALS (7 sets, daily range): BP systolic 96–116; BP diastolic 50–66
[2018-07-07] MEDS: INSULIN REGULAR, HUMAN 100 UNIT/1 ML 3ML VIAL SQ SCH ×4 (07:30→21:00)
[2018-07-07] MEDS: POTASSIUM CHLORIDE 10MEQ EA PO SCH ×2 (08:15→17:00)
[2018-07-07] MEDS: CEFEPIME 1GM/NS 0.9% 50 ML 50 ML IV SCH ×2 (08:15→20:00)
[2018-07-07] MEDS: POTASSIUM CHLORIDE 20 MEQ TAB CR PO SCH (08:15)
[2018-07-07] MEDS: ATORVASTATIN 20 MG TAB PO SCH (08:15)
[2018-07-07] MEDS: FAMOTIDINE 20 MG TAB PO SCH (08:15)
[2018-07-07] MEDS: METOLAZONE 5 MG TAB PO SCH (08:15)
[2018-07-07] MEDS: VALSARTAN 80 MG TAB PO SCH (08:15)
[2018-07-07] MEDS: FUROSEMIDE 40 MG TAB PO SCH ×2 (08:15→21:00)
[2018-07-07] MEDS: METOPROLOL TARTRATE 50 MG TAB PO SCH ×2 (08:15→17:00)
[2018-07-07] MEDS: GLIMEPIRIDE 2 MG TAB PO SCH (08:15)
[2018-07-07] MEDS ORDERED: SODIUM CHLORIDE 0.9% 250ML 250 ML ONE (08:16)
[2018-07-07 10:49] LABS: INR 1.93; PROTHROMBIN TIME 23.6 seconds (11.9-14.5)
--- NOTE | 2018-07-07 11:06 | Progress Note ---
DATE: July 07, 2018 CARDIOLOGY PROGRESS NOTE SUBJECTIVE: The patient denies chest pain or shortness of breath. OBJECTIVE VITALS: Temperature 96 degrees, pulse 85, respiratory rate 18, blood pressure 113/66, oxygen saturation 98% on room air. GENERAL: Awake, alert and in no acute distress. LUNGS: Clear to auscultation bilaterally. No wheezes or crackles. CARDIOVASCULAR: Normal rate. Irregularly irregular. No murmur. Normal S1 and S2. ABDOMEN: Soft and nontender. EXTREMITIES: One plus pitting edema. CARDIAC MEDICATIONS 1. Furosemide 40 mg p.o. q.12 h. 2. Metoprolol tartrate 50 mg p.o. b.i.d. 3. Valsartan 160 mg p.o. daily. 4. Metolazone 5 mg p.o. daily. 5. Atorvastatin 20 mg p.o. at bedtime. 6. Warfarin 5 mg p.o. daily. LABS: None today. IMPRESSION 1. Nonsustained ventricular tachycardia. 2. Chronic atrial fibrillation. 3. Hypertension. 4. Hyperlipidemia. 5. Chronic diastolic heart failure. 6. Lower extremity cellulitis and edema. RECOMMENDATIONS: Continue current cardiac medications. Monitor INR closely. Replete electrolytes. Recommend compression wrapping of the patient's lower extremities. Antibiotics per primary service. The patient is pending acceptance to [facility]. Thank you for this consult. We will continue to follow. Job#: [id number] HI
[2018-07-07] MEDS: WARFARIN SOD 5 MG TAB PO SCH (17:00)
[2018-07-08] VITALS: BP 133/78
[2018-07-08 04:00] VITALS: BP 142/78
[2018-07-08] MEDS: INSULIN REGULAR, HUMAN 100 UNIT/1 ML 3ML VIAL SQ SCH ×2 (07:30→11:30)
[2018-07-08 07:50] VITALS: BP 119/66
[2018-07-08] MEDS: FAMOTIDINE 20 MG TAB PO SCH (08:47)
[2018-07-08] MEDS: GLIMEPIRIDE 2 MG TAB PO SCH (08:47)
[2018-07-08] MEDS: METOPROLOL TARTRATE 50 MG TAB PO SCH (08:47)
[2018-07-08] MEDS: POTASSIUM CHLORIDE 10MEQ EA PO SCH (08:47)
[2018-07-08] MEDS: ATORVASTATIN 20 MG TAB PO SCH (08:47)
[2018-07-08] MEDS: METOLAZONE 5 MG TAB PO SCH (08:47)
[2018-07-08] MEDS: FUROSEMIDE 40 MG TAB PO SCH (08:47)
[2018-07-08] MEDS: VALSARTAN 80 MG TAB PO SCH (08:47)
[2018-07-08] MEDS: CEFEPIME 1GM/NS 0.9% 50 ML 50 ML IV SCH (08:47)
[2018-07-08] MEDS: POTASSIUM CHLORIDE 20 MEQ TAB CR PO SCH (09:10)
[2018-07-08 11:38] VITALS: BP 120/56
--- NOTE | 2018-07-08 12:46 | Progress Note ---
DATE: July 08, 2018 CARDIOLOGY PROGRESS NOTE SUBJECTIVE: The patient denies chest pain or shortness of breath. OBJECTIVE VITALS: Temperature 95.3 degrees, pulse 82, respiratory rate 18, blood pressure 119/66, oxygen saturation 82% on room air. GENERAL: Obese woman in no acute distress. Awake and alert. LUNGS: Clear to auscultation bilaterally. No wheezes or crackles. CARDIOVASCULAR: Normal rate and irregular. No murmur. Normal S1 and S2. ABDOMEN: Soft and nontender. EXTREMITIES: One plus pitting edema. CARDIAC MEDICATIONS 1. Furosemide 40 mg p.o. daily. 2. Metoprolol tartrate 50 mg p.o. b.i.d. 3. Valsartan 160 mg p.o. daily. 4. Metolazone 5 mg p.o. daily. 6. Atorvastatin 20 mg p.o. at bedtime. 7. Warfarin 5 mg p.o. daily. LABS: None today. IMPRESSION 1. Nonsustained ventricular tachycardia. 2. Chronic atrial fibrillation. 3. Hypertension. 4. Hyperlipidemia. 5. Chronic diastolic heart failure. 6. Lower extremity cellulitis and edema. RECOMMENDATIONS: Continue current cardiac medications. Monitor INR closely. It is rising. Continue current warfarin dose. Replete electrolytes. Compression wrapping the patient's lower extremities. Antibiotics per primary service. The patient is pending acceptance to [facility]. Thank you for this consult. We will continue to follow. Job#: [id number] OK
[2018-07-08] MEDS ORDERED: VANCOMYCIN 1GM/NS 250 ML 250 ML IV SCH (17:00)
== END 2018-07-08 15:04 | DRG 602 ==
LOC: ER 11:40 → ERHOLD 18:18 → MED/SURG3 19:12
PROVIDERS: ADMIT Internal Medicine; ATTEND Internal Medicine
DX: L03.115 Cellulitis of right lower limb (principal); I50.33 Acute on chronic diastolic (congestive) heart failure; I13.0 Hypertensive heart and chronic kidney disease with heart failure and stage 1 through stage 4 chronic kidney disease, or unspecified chronic kidney disease; I47.2 Ventricular tachycardia; N17.9 Acute kidney failure, unspecified; E11.22 Type 2 diabetes mellitus with diabetic chronic kidney disease; N18.3 Chronic kidney disease, stage 3 (moderate); Z79.84 Long term (current) use of oral hypoglycemic drugs; E66.9 Obesity, unspecified; Z68.35 Body mass index [BMI] 35.0-35.9, adult; E78.5 Hyperlipidemia, unspecified; I48.2 Chronic atrial fibrillation; Z79.01 Long term (current) use of anticoagulants; E87.6 Hypokalemia; R53.81 Other malaise; Z28.21 Immunization not carried out because of patient refusal
CPT/HCPCS: 36415; 80048; 80053; 80202; 82948; 83605; 83735; 83880; 85025; 85379; 85610; 85730; 87040; 93005; 93971; 96365; 99284; J0692; J2270; J2543; J3370; J3475; J7050

== ENCOUNTER 2018-11-22 20:24 | Inpatient (IN) | payer MEDICARE ==
[~2018-11-22] VITALS: Ht 170.2 cm; Wt 101.4 kg
[~2018-11-22 20:24] MED LIST changes: +DIOVAN80 MG PO
[2018-11-22] MEDS ORDERED: SODIUM CHLORIDE 0.9% 1000ML 1,000 ML IV STA (21:22)
[2018-11-22] MEDS ORDERED: PANTOPRAZOLE 40 MG 10ML VIAL IV NR (21:22)
[2018-11-22] MEDS ORDERED: SODIUM CHLORIDE 0.9% 1000ML 1,000 ML ONE (21:29)
[2018-11-22] MEDS ORDERED: ACETAMINOPHEN 1000 MG/100 ML 100 ML IV ONE (21:29)
[2018-11-22] MEDS ORDERED: ACETAMINOPHEN 1000 MG/100 ML IV STA (21:37)
[2018-11-22 21:48] LABS: BASOPHILS % 0.1 % (0.0-1.0); HEMATOCRIT 38.2 % (34.2-44.1); HEMOGLOBIN 12.8 g/dL (12.0-16.0); LYMPHOCYTES # (AUTO) 0.3 (1.0-3.2); LYMPHOCYTES % 3.1 % (18.0-39.1); MEAN CORPUSCULAR HEMOGLOBIN 31.4 pg (28-32); MEAN CORPUSCULAR HGB CONC 33.5 g/dL (31-35); MEAN CORPUSCULAR VOLUME 93.6 fL (81-99); MONOCYTES # (AUTO) 0.4 (0.2-0.8); MONOCYTES % 3.8 % (4.4-11.3); NEUTROPHILS # (AUTO) 9.1 (2.1-6.9); NEUTROPHILS % 92.5 % (38.7-80.0); PLATELET COUNT 114 x10e3/uL (140-360); RED BLOOD COUNT 4.08 x10e6/uL (3.6-5.1); RED CELL DISTRIBUTION WIDTH 14.5 % (11.7-14.4)
[2018-11-22 21:54] LABS: INR 1.56; PARTIAL THROMBOPLASTIN TIME 33.3 seconds (23.8-35.5); PROTHROMBIN TIME 19.3 seconds (11.9-14.5)
--- NOTE | 2018-11-22 22:02 | NUR ---
IN AND OUT CATH DONE USING STERILE TECHNIQUE. SPECIMEN SENT TO LAB, PURE WICK PLACED ON PATIENT, AIR MATTRESS FOR COMFORT
[2018-11-22 22:05] LABS: ALBUMIN 3.8 g/dL (3.5-5.0); ANION GAP 16.3 mmol/L (8-16); CALCIUM 10.7 mg/dL (8.4-10.2); CREATININE, SERUM 1.2 mg/dL (0.57-1.11); MAGNESIUM 1.6 MG/DL (1.3-2.1); POTASSIUM 3.3 mmol/L (3.5-5.1)
[2018-11-22 22:12] LABS: CREATINE KINASE MB 0.7 ng/mL (0-5.0)
[2018-11-22] MEDS ORDERED: KEFLEX500 MG PO (22:16)
[2018-11-22] MEDS ORDERED: LOSARTAN POTAS100 MG PO (22:16)
[2018-11-22] MEDS ORDERED: POTASSIUM CHLO20 ME1 PO (22:16)
--- NOTE | 2018-11-22 22:20 | Diagnostic Imaging Report ---
EXAMINATION: CHEST SINGLE (PORTABLE) COMPARISON: Chest x-ray 01/11/2017 INDICATION: Sepsis ^sepsis ^[id number] ^[id number] ^Y DISCUSSION: Frontal view of the chest obtained at 2159 hours. HEART AND MEDIASTINUM: Stable cardiomegaly. Stable aortic arch calcifications. LINES: None. LUNGS: The right lung is clear. Left lung base is poorly visualized. Pulmonary vascular markings are normal. No interstitial edema. PLEURA: No pleural effusion or pneumothorax. BONES AND SOFT TISSUES: No focal osseous lesion. The soft tissues are normal. IMPRESSION: Stable cardiomegaly without vascular congestion. Poor visualization of the left lung base. Recommend correlation with PA and lateral chest x-ray if clinically feasible. Signed by: Dr. Yudi Perez MD on 11/22/2018 10:16 PM
[2018-11-22 22:29] LABS: BILIRUBIN,URINE NEGATIVE (NEGATIVE); CLARITY,URINE CLEAR (CLEAR); COLOR,URINE YELLOW (YELLOW); KETONES,URINE NEGATIVE (NEGATIVE); LEUKOCYTE ESTERASE ,URINE NEGATIVE (NEGATIVE); NITRITE,URINE NEGATIVE (NEGATIVE); PROTEIN,URINE DIPSTICK NEGATIVE (NEGATIVE); URINE UROBILINOGEN 0.2 mg/dL (0.2 - 1)
--- NOTE | 2018-11-22 22:36 | NUR ---
PT HAS CHRONIC WOUND TO RIGHT 2ND TOE, REDNESS NOTED
[2018-11-22 22:50] LABS: BACTERIA,URINE FEW /HPF; EPITHELIAL CELLS,URINE FEW /LPF
[2018-11-22] MEDS ORDERED: ONDANSETRON HCL INJ 2MG/ML 2ML 2 MG/ML VIAL IV STA (23:37)
[2018-11-22] MEDS ORDERED: KCL 20MEQ/.9 SOD CHL 1,000 ML IV ONE (23:45)
[2018-11-22] MEDS ORDERED: ACETAMINOPHEN 1000 MG/100 ML IV PRN (23:45)
[2018-11-22] MEDS ORDERED: DEXTROSE 50% SYRINGE 50 ML IV PRN (23:45)
[2018-11-22] MEDS ORDERED: PIPER-TAZ 3.375 GM 50 ML ONE (23:58)
[2018-11-23] VITALS (9 sets, daily range): BP systolic 92–109; BP diastolic 49–58
[2018-11-23] MEDS: PIPERACILLIN/TAZO 2.25 GM 50 ML IV SCH ×4 (00:04→22:07)
[2018-11-23 03:56] LABS: EOSINOPHILS % (MANUAL) 1 % (0-7); LYMPHOCYTES % (MANUAL) 1 % (19-48); MONOCYTES % (MANUAL) 5 % (3.4-9.0); NEUTROPHILS % (MANUAL) 93 % (40-74)
[2018-11-23 03:57] LABS: PLATELET ESTIMATE SLIGHTLY DECREASED; PLATELET MORPHOLOGY COMMENT NORMAL
[2018-11-23 05:23] LABS: HEMATOCRIT 37.2 % (34.2-44.1)
[2018-11-23] MEDS: INSULIN REGULAR, HUMAN 100 UNIT/1 ML 3ML VIAL SQ SCH ×4 (07:30→21:00)
[2018-11-23] MEDS: FUROSEMIDE 40 MG TAB PO SCH ×2 (09:00→16:57)
[2018-11-23] MEDS: LOSARTAN POTASSIUM 100 MG TAB PO SCH (09:00)
[2018-11-23] MEDS: METOPROLOL TARTRATE 25 MG TAB PO SCH ×2 (09:00→16:58)
[2018-11-23] MEDS: POTASSIUM CHLORIDE 20 MEQ TAB CR PO SCH ×3 (09:00→22:07)
[2018-11-23] MEDS: METOLAZONE 5 MG TAB PO SCH (09:00)
[2018-11-23] MEDS ORDERED: ATORVASTATIN 20 MG TAB PO SCH (09:00)
--- NOTE | 2018-11-23 11:50 | NUR ---
Patient left the floor for EGD procedure.
--- NOTE | 2018-11-23 16:05 | NUR ---
WOUND CARE CONSULTATION - INITIAL EVALUATION Patient admitted from home to ER for Bloody Vomitus and cellulitis of right foot 2nd toe with fever. LABS: WBC9.86 HGB12 HCT37.2 NEUT%92.5 ANF234 ALB3.8 Micro Urine - Results Pending Micro Blood - Results Pending S/P EGD with Biopsy performed 11/23/18 with normal findings. WC Consulted for right foot 2nd toe ulcer evaluation and treatment. PATIENT VISIT Patient in bed AAOX3. Calm and cooperative Patient denies wounds. Verbalizes "doctoring" up right foot 2nd to at home with triple antibiotic ointment. States has not been out of bed since admitted. States to use walker at home to get out of bed. Gianni Score. [address] Presents with small irregular dry scaly ulceration to right foot 2nd toe. Mild erythema that is blanchable. No swelling noted. No tenderness. No drainage. Measurements provided in wound assessment section and is linked to this note. IMPRESSION: 1. Left Foot 2nd Toe -Abrasion. RECOMMENDATION: 1. Left Foot 2nd Toe - - Wash foot with Hibiclens soap - Apply Bactroban to left foot 2nd toe ulcer and leave open to air. 2. Encourage OOB activity. 3. Bedside commode & Walker 4. Alternating Pressure Air Mattress 5. Initiate Moderate PUP Protocol. Thank you for consulting with wound care. Addendum: 11/23/18 at 1613 by Aman Cook RN Amended: Links added.
[2018-11-23] MEDS: FAMOTIDINE 20 MG TAB PO SCH (16:55)
[2018-11-23] MEDS: PANTOPRAZOLE 40 MG 10ML VIAL IV SCH (16:55)
[2018-11-23] MEDS: GLIMEPIRIDE 2 MG TAB PO SCH (16:55)
[2018-11-23] MEDS ORDERED: WARFARIN SOD 2.5 MG TAB PO SCH (17:00)
[2018-11-23 17:14] LABS: HEMOGLOBIN 11.1 g/dL (12.0-16.0)
[2018-11-23] MEDS ORDERED: PROPOFOL IV EMULSION 10 MG/ML 20 ML VIAL ONE (17:18)
[2018-11-23] MEDS ORDERED: LIDOCAINE HCL 2% LOCAL INJ 5 ML SDV VIAL INJ ONE (17:18)
--- NOTE | 2018-11-23 18:55 | Consultation ---
DATE OF CONSULTATION: REASON FOR CONSULT: Hematemesis. CHIEF COMPLAINT: Hematemesis. HISTORY OF PRESENT ILLNESS: The patient is an 83-year-old female with past medical history of hypertension, diabetes, atrial fibrillation, hyperlipidemia, CHF, who presented to the ED with reports of five episodes of hematemesis that started yesterday. The patient states, she has never had this before in the past. She states that she does not have any abdominal pain, nausea, vomiting, melena, or hematochezia. She states that she does not recall ever having an EGD or colonoscopy in the past. She denies any chronic NSAID use or heavy alcohol use. She states that she currently takes warfarin and her last dose was probably yesterday. She denies any chest pain or shortness of breath. She denies any hematuria, skin rash or joint pain. REVIEW OF SYSTEMS: Please see above. PAST MEDICAL HISTORY: Hypertension, diabetes, atrial fibrillation, hyperlipidemia. PAST SURGICAL HISTORY: Second digit left foot, lens replacement in both eyes. MEDICATIONS: Currently on Zosyn, glimepiride, Pepcid 20 p.o., IV PPI b.i.d. currently. SOCIAL HISTORY: She denies any history of alcohol use or recreational drug use or smoking. FAMILY HISTORY: Hypertension. PHYSICAL EXAMINATION: VITAL SIGNS: Temperature 99.2, pulse 120, respiratory rate 20, blood pressure 115/50, pulse ox 97. GENERAL APPEARANCE: Alert, oriented x3. Mild distress. HEENT: No nasal discharge. NECK: Supple. Nontender. CARDIAC: Normal heart and rate, tachycardic. LUNGS: No respiratory distress. Clear to auscultation bilaterally. ABDOMEN: Soft, nontender. Bowel sounds normal. SKIN: No cyanosis. No clubbing. Bilateral mild 1+ edema in both feet. NEURO: Alert and oriented times x3. No weakness. No sensory deficit. LABORATORY DATA: White count 9.86, hemoglobin 12.8, MCV 93.6, platelet count 114. Coags; INR 1.5, PTT 19.3. Sodium 138, potassium 3.3, creatinine 1.2, AST 42, ALT 28. ASSESSMENT: 1. Hematemesis, rule out upper gastrointestinal bleed. 2. Anemia. 3. Atrial fibrillation, on warfarin. PLAN: 1. EGD plan for today with Dr. Wooten. The patient is n.p.o. Awaiting consent. 2. IV Protonix b.i.d. 3. Monitor H and H and transfuse if needed. 4. Avoid chronic NSAIDs use. Please call us with any questions. MD BENNY Angelo/MODL /[id number]
[2018-11-23] MEDS: VANCOMYCIN 500MG/NS 0.9% 100ML 100 ML IV SCH (23:41)
[2018-11-23] MEDS ORDERED: SODIUM CHLORIDE 0.9% 250ML 250 ML ONE (23:48)
[2018-11-24 00:20] VITALS: BP 102/53
[2018-11-24 05:22] LABS: BASOPHILS % 0.5 % (0.0-1.0); EOSINOPHILS # (AUTO) 0.1 (0.0-0.4); EOSINOPHILS % 1.3 % (0.0-6.0); HEMATOCRIT 33.2 % (34.2-44.1); HEMOGLOBIN 10.7 g/dL (12.0-16.0); LYMPHOCYTES # (AUTO) 0.8 (1.0-3.2); LYMPHOCYTES % 13.9 % (18.0-39.1); MEAN CORPUSCULAR HGB CONC 32.2 g/dL (31-35); MEAN CORPUSCULAR VOLUME 96.2 fL (81-99); MONOCYTES # (AUTO) 0.7 (0.2-0.8); MONOCYTES % 13.3 % (4.4-11.3); NEUTROPHILS # (AUTO) 3.9 (2.1-6.9); NEUTROPHILS % 70.6 % (38.7-80.0); PLATELET COUNT 95 x10e3/uL (140-360); RED BLOOD COUNT 3.45 x10e6/uL (3.6-5.1); RED CELL DISTRIBUTION WIDTH 14.6 % (11.7-14.4)
[2018-11-24 05:36] VITALS: BP 105/55
[2018-11-24] MEDS: PIPERACILLIN/TAZO 2.25 GM 50 ML IV SCH ×3 (05:48→21:19)
[2018-11-24 05:53] LABS: ALBUMIN 2.9 g/dL (3.5-5.0); ANION GAP 9.7 mmol/L (8-16); CREATININE, SERUM 1.23 mg/dL (0.57-1.11)
[2018-11-24 05:59] LABS: POTASSIUM 2.7 mmol/L (3.5-5.1)
--- NOTE | 2018-11-24 06:10 | NUR ---
RECEIVED CRITICAL K 2.7. NOTIFIED DR PARRISH. NEW ORDER RECEIVED
[2018-11-24] MEDS ORDERED: POTASSIUM CHLORIDE 20MEQ/100ML 200 ML IV ONE (06:15)
[2018-11-24] MEDS: INSULIN REGULAR, HUMAN 100 UNIT/1 ML 3ML VIAL SQ SCH ×4 (07:30→20:00)
--- NOTE | 2018-11-24 08:50 | NUR ---
Patient is refusing IV potassium. Dr. Thakur notified. New orders received.
[2018-11-24] MEDS: POTASSIUM CHLORIDE 20 MEQ TAB CR PO SCH ×3 (09:05→20:35)
[2018-11-24] MEDS: LOSARTAN POTASSIUM 100 MG TAB PO SCH (09:06)
[2018-11-24] MEDS: GLIMEPIRIDE 2 MG TAB PO SCH (09:06)
[2018-11-24] MEDS: PANTOPRAZOLE 40 MG 10ML VIAL IV SCH (09:06)
[2018-11-24] MEDS: FUROSEMIDE 40 MG TAB PO SCH ×2 (09:06→14:28)
[2018-11-24] MEDS: METOLAZONE 5 MG TAB PO SCH (09:06)
[2018-11-24] MEDS: METOPROLOL TARTRATE 25 MG TAB PO SCH ×2 (09:06→16:42)
[2018-11-24] MEDS ORDERED: POTASSIUM CHLORIDE 20 MEQ TAB CR PO ONE (11:00)
--- NOTE | 2018-11-24 11:55 | Diagnostic Imaging Report ---
EXAMINATION: Head CT HISTORY: Headache. COMPARISON: None. TECHNIQUE: Multidetector axial images were obtained without contrast from the foramen magnum to the vertex . The images were reconstructed using brain and bone algorithms. Thin section brain images were reformatted into coronal and sagittal planes. Image quality: Motion/streaking artifact limits the evaluation of the skull base and posterior cranial fossa. Dose modulation, iterative reconstruction, and/or weight based adjustment of the mA/kV was utilized to reduce the radiation dose to as low as reasonably achievable. FINDINGS: Parenchyma: 1. Few scattered white matter hypodensities, most likely age appropriate minimal chronic microvascular ischemic changes. 2. No mass or hemorrhage. No CT evidence of acute territorial vascular insult. Extra-axial spaces:No abnormal density. No extra-axial fluid collections Brain volume: Normal for age. Ventricles: No hydrocephalus or displacement. Arteries: No density suggestive of thrombus. Dural sinuses: No abnormal density. Extra-axial spaces: No abnormal density. Foramen magnum: No mass, Chiari malformation, or basilar invagination. Sella: No obvious mass. Paranasal/mastoid sinuses: Imaged portions unremarkable. Skull/Scalp: No lytic or blastic lesions. No fractures. IMPRESSION: No intracranial abnormalities. Signed by: Dr. Franny Eller M.D. on 11/24/2018 11:51 AM
[2018-11-24 12:00] VITALS: BP_SYST 101; BP_SYST 122; BP_DIAS 57; BP_DIAS 72
[2018-11-24 12:04] LABS: HEMATOCRIT 35.5 % (34.2-44.1); HEMOGLOBIN 11.6 g/dL (12.0-16.0)
[2018-11-24] MEDS: FAMOTIDINE 20 MG TAB PO SCH (12:15)
[2018-11-24] MEDS: MUPIROCIN 2% OINT 22 GM TUBE TOP SCH (14:41)
--- NOTE | 2018-11-24 14:43 | NUR ---
Nutrition Screen Note RD Recommendation for Physician: -Rec adding ADA 1800 to 2g sodium diet as medically appropriate Plan of Care: RD following, monitoring for tolerance and adequacy Nutrition reason for involvement: Nutrition Risk Trigger - MST Primary Diagnose(s): 1. Hematemesis, rule out upper gastrointestinal bleed. 2. Anemia. 3. Atrial fibrillation, on warfarin. PMH: Hypertension, diabetes, atrial fibrillation, hyperlipidemia. Ht: 67in Wt: 223lb BMI: 34.9kg/m2 IBW: 135lb RD Assessment: (11/24) Chart reviewed. Labs and meds reviewed. 83yo F, who was admitted for hematemesis. Visited pt in the room. Pt reported fair appetite. No complains of nausea or vomiting reported. LBM 11/24. Pt denied any chewing or swallowing difficulty. No recent weight loss reported with UBW at 217lbs. Will continue to monitor and follow. Current Diet: 2g sodium diet Malnutrition Evaluation (11/24) The patient does not meet criteria for a specified degree of malnutrition at this time. Will re-evaluate at follow-up as appropriate. Diet Education Needs Assessment: Diet education not indicated. Nutrition Care Level: low Signed: Tiarra Melendrez, MS, RD, LD
[2018-11-24 14:59] VITALS: BP 101/57
[2018-11-24] MEDS: VANCOMYCIN 500MG/NS 0.9% 100ML 100 ML IV SCH ×2 (15:00→23:29)
[2018-11-24 16:00] VITALS: BP 136/75
--- NOTE | 2018-11-24 18:00 | NUR ---
Dr. Wooten made rounds to see patient, I notified him patient has had x 2 watery loose stool today. No new orders at this time.
[2018-11-24 20:00] VITALS: BP 96/54
[2018-11-24] MEDS ORDERED: ATORVASTATIN 20 MG TAB PO SCH (21:00)
[2018-11-25 00:14] VITALS: BP 107/55
[2018-11-25 04:00] VITALS: BP 111/64
--- NOTE | 2018-11-25 04:45 | NUR ---
NOTIFIED DR PARRISH THAT PATIENT HAS BEEN HAVING LOOSE STOOL. NOW NEW ORDER RECEIVED AT THIS TIME.
[2018-11-25 05:05] LABS: HEMATOCRIT 35.4 % (34.2-44.1); HEMOGLOBIN 11.5 g/dL (12.0-16.0)
[2018-11-25] MEDS ORDERED: SODIUM CHLORIDE 0.9% 250ML 250 ML ONE (05:15)
[2018-11-25 05:34] LABS: ANION GAP 13.1 mmol/L (8-16); CALCIUM 8.9 mg/dL (8.4-10.2); CREATININE, SERUM 1.12 mg/dL (0.57-1.11); POTASSIUM 3.1 mmol/L (3.5-5.1)
[2018-11-25] MEDS: PIPERACILLIN/TAZO 2.25 GM 50 ML IV SCH ×2 (05:38→14:11)
--- NOTE | 2018-11-25 06:40 | NUR ---
NOTIFIED DR PARRISH K-3.1, RECEIVE NEW ORDER FOR POTASSIUM 40 MEQ PO, RECHECK K AT 1500 AND NOTIFIED THE RESULT
[2018-11-25] MEDS ORDERED: POTASSIUM CHLORIDE 20 MEQ TAB CR PO STA (06:45)
--- NOTE | 2018-11-25 07:00 | NUR ---
BEDSIDE SHIFT REPORT RECEIVED FROM TRACK REPAIR PERSON RN. PT DENIES NEEDS AT THIS TIME.
[2018-11-25] MEDS: INSULIN REGULAR, HUMAN 100 UNIT/1 ML 3ML VIAL SQ SCH ×3 (07:30→17:02)
[2018-11-25 08:05] VITALS: BP 112/56
[2018-11-25] MEDS: PANTOPRAZOLE 40 MG 10ML VIAL IV SCH (08:59)
[2018-11-25] MEDS: FUROSEMIDE 40 MG TAB PO SCH ×2 (08:59→13:06)
[2018-11-25] MEDS: GLIMEPIRIDE 2 MG TAB PO SCH (08:59)
[2018-11-25] MEDS: LOSARTAN POTASSIUM 100 MG TAB PO SCH (08:59)
[2018-11-25] MEDS: METOPROLOL TARTRATE 25 MG TAB PO SCH ×2 (09:00→17:00)
[2018-11-25] MEDS: POTASSIUM CHLORIDE 20 MEQ TAB CR PO SCH ×2 (09:00→14:11)
[2018-11-25] MEDS: FAMOTIDINE 20 MG TAB PO SCH (09:00)
[2018-11-25] MEDS: METOLAZONE 5 MG TAB PO SCH (09:00)
[2018-11-25] MEDS ORDERED: MONTELUKAST SODIUM 10 MG TAB PO SCH (09:00)
[2018-11-25] MEDS: MUPIROCIN 2% OINT 22 GM TUBE TOP SCH (09:01)
--- NOTE | 2018-11-25 10:11 | NUR ---
IMM letter delivered and explained to pt. She verbalized understanding. Signed copy placed in chart. Copy to pt.
[2018-11-25 12:19] VITALS: BP 103/57
[2018-11-25] MEDS: VANCOMYCIN 500MG/NS 0.9% 100ML 100 ML IV SCH (13:06)
[2018-11-25 15:16] LABS: HEMOGLOBIN 12.9 g/dL (12.0-16.0)
[2018-11-25 16:43] VITALS: BP 120/58
[2018-11-25] MEDS ORDERED: POTASSIUM CHLORIDE 20 MEQ TAB CR PO ONE (16:48)
--- NOTE | 2018-11-25 17:20 | NUR ---
FOSTER FROM STANDPOINT OF DR. JACQUES TO DISCHARGE HOME. FU IN 2 WEEKS.
--- NOTE | 2018-11-29 04:31 | Discharge Summary ---
DISCHARGE DIAGNOSES: 1. Upper GI bleed. 2. Cellulitis of the right hand. 3. Diabetes. 4. Hypertension. HISTORY OF PRESENT ILLNESS AND HOSPITAL COURSE: See hospital chart for full details. The patient is a lady brought in with an episode of emesis with bright red blood per the emesis, where she was noticed to do a couple of times in the emergency room. She was admitted, placed on IV fluids and IV proton pump inhibitor where she has had no further nausea, vomiting, or bleeding episodes. Her hemoglobin decreased slightly, but did not require any blood transfusion. She was seen by GI, who did an EGD that was unremarkable show no active bleeding. Eventually, she has not found the symptoms after that, she was also placed on IV antibiotics and at the time of discharge, the patient was back to her baseline, doing well, so she was discharged home on p.o. medications and follow up me in the emergency room in 1 to 2 two weeks. Please see hospital chart for full details. MD YASMINE Velez/AMELIA /[id number]
== END 2018-11-25 19:35 | disposition home or self-care (01) | DRG 872 ==
LOC: ER 20:24 → ERHOLD 23:55 → MED/SURG2 11-23 00:25
PROVIDERS: ADMIT Internal Medicine; ATTEND Internal Medicine
PROC: 0DB78ZX Excision of Stomach, Pylorus, Via Natural or Artificial Opening Endoscopic, Diagnostic (ICD-10-PCS; principal; 2018-11-22)
DX: A41.9 Sepsis, unspecified organism (principal); K92.2 Gastrointestinal hemorrhage, unspecified; I13.0 Hypertensive heart and chronic kidney disease with heart failure and stage 1 through stage 4 chronic kidney disease, or unspecified chronic kidney disease; L03.032 Cellulitis of left toe; I48.91 Unspecified atrial fibrillation; K29.70 Gastritis, unspecified, without bleeding; K44.9 Diaphragmatic hernia without obstruction or gangrene; Z79.01 Long term (current) use of anticoagulants; E78.5 Hyperlipidemia, unspecified; D69.6 Thrombocytopenia, unspecified; E11.22 Type 2 diabetes mellitus with diabetic chronic kidney disease; N18.3 Chronic kidney disease, stage 3 (moderate); I50.9 Heart failure, unspecified; E87.6 Hypokalemia
CPT/HCPCS: 36415; 43235; 70450; 71045; 80053; 81001; 82150; 82550; 82553; 82948; 83605; 83690; 83735; 84132; 84484; 85014; 85018; 85025; 85610; 85730; 86850; 86900; 87040; 87086; 93005; 99284; J2001; J2405; J2543; J3370; J3480; J7030; J7050

== ENCOUNTER 2019-01-02 02:49 | Inpatient (IN) | payer MEDICARE ==
[~2019-01-02] VITALS: Ht 170.2 cm; Wt 91.3 kg
[2019-01-02] VITALS (9 sets, daily range): BP systolic 80–97; BP diastolic 55–72
[~2019-01-02 02:49] MED LIST changes: +KEFLEX500 MG PO; +LOSARTAN POTAS100 MG PO; +POTASSIUM CHLO20 ME1 PO
[2019-01-02] MEDS ORDERED: METHYLPREDNISOLONE SOD SUCC 125 MG/2ML VIAL IM ONE (03:00)
[2019-01-02] MEDS ORDERED: DIPHENHYDRAMINE HCL 25 MG CAP PO ONE (03:00)
[2019-01-02] MEDS ORDERED: FAMOTIDINE 20 MG TAB PO ONE (03:00)
[2019-01-02] MEDS ORDERED: METHYLPREDNISOLONE SOD SUCC 125 MG/2ML VIAL IV ONE (03:15)
[2019-01-02] MEDS ORDERED: METOPROLOL TARTRATE INJ 1 MG/ML VIAL IV ONE (03:30)
[2019-01-02] MEDS ORDERED: FAMOTIDINE20 MG PO (03:38)
[2019-01-02] MEDS ORDERED: CETIRIZINE HCL10 MG PO (03:38)
[2019-01-02] MEDS ORDERED: SSD TOP (03:38)
[2019-01-02 04:15] LABS: BASOPHILS % 0.1 % (0.0-1.0); EOSINOPHILS # (AUTO) 0.1 (0.0-0.4); HEMATOCRIT 38.9 % (34.2-44.1); HEMOGLOBIN 12.8 g/dL (12.0-16.0); LYMPHOCYTES # (AUTO) 0.8 (1.0-3.2); LYMPHOCYTES % 6.1 % (18.0-39.1); MEAN CORPUSCULAR HEMOGLOBIN 30.8 pg (28-32); MEAN CORPUSCULAR HGB CONC 32.9 g/dL (31-35); MEAN CORPUSCULAR VOLUME 93.5 fL (81-99); MONOCYTES # (AUTO) 1.1 (0.2-0.8); MONOCYTES % 8.1 % (4.4-11.3); NEUTROPHILS # (AUTO) 11.4 (2.1-6.9); NEUTROPHILS % 84.1 % (38.7-80.0); PLATELET COUNT 117 x10e3/uL (140-360); RED BLOOD COUNT 4.16 x10e6/uL (3.6-5.1); RED CELL DISTRIBUTION WIDTH 14.8 % (11.7-14.4)
[2019-01-02 04:51] LABS: INR 3.06; PARTIAL THROMBOPLASTIN TIME 50.2 seconds (23.8-35.5); PROTHROMBIN TIME 32.4 seconds (11.9-14.5)
[2019-01-02 04:58] LABS: ALBUMIN 3.2 g/dL (3.5-5.0); ALBUMIN/GLOBULIN RATIO 0.8 (0.8-2.0); ANION GAP 16.7 mmol/L (8-16); CALCIUM 10.1 mg/dL (8.4-10.2); CREATININE, SERUM 1.82 mg/dL (0.57-1.11); POTASSIUM 4.7 mmol/L (3.5-5.1)
[2019-01-02 05:05] LABS: CREATINE KINASE MB 1.9 ng/mL (0-5.0)
--- NOTE | 2019-01-02 05:29 | Diagnostic Imaging Report ---
EXAMINATION: CHEST SINGLE (NOT PORTABLE) INDICATION: ^sob ^[id number] ^0415 ^Y COMPARISON: 11/22/2018 FINDINGS: AP view TUBES and LINES: None. LUNGS: Limited by body habitus. Lungs are well inflated. Mild vascular congestion. No definite focal consolidation. PLEURA: No significant pleural effusion or pneumothorax. HEART AND MEDIASTINUM: The cardiac silhouette is enlarged. BONES AND SOFT TISSUES: No acute osseous lesion. Soft tissues are unremarkable. UPPER ABDOMEN: No free air under the diaphragm. IMPRESSION: Enlarged cardiac silhouette and mild central vascular congestion. Trace bilateral pleural effusions cannot be excluded. Signed by: Dr. Braulio Nguyễn MD on 01/02/2019 5:26 AM
[2019-01-02] MEDS ORDERED: ONDANSETRON HCL INJ 2MG/ML 2ML 2 MG/ML VIAL IV PRN (05:45)
[2019-01-02] MEDS ORDERED: DIPHENHYDRAMINE HCL INJ 50 MG/ML VIAL IV PRN (05:45)
[2019-01-02] MEDS ORDERED: DEXTROSE 50% SYRINGE 50 ML IV PRN (05:45)
[2019-01-02] MEDS ORDERED: SODIUM CHLORIDE FLUSH 10 ML SYR INJ PRN (05:45)
[2019-01-02 05:59] LABS: BILIRUBIN,URINE NEGATIVE (NEGATIVE); CLARITY,URINE CLEAR (CLEAR); COLOR,URINE YELLOW (YELLOW); KETONES,URINE NEGATIVE (NEGATIVE); LEUKOCYTE ESTERASE ,URINE NEGATIVE (NEGATIVE); NITRITE,URINE NEGATIVE (NEGATIVE); PROTEIN,URINE DIPSTICK TRACE (NEGATIVE); URINE UROBILINOGEN 0.2 mg/dL (0.2 - 1)
[2019-01-02] MEDS ORDERED: METHYLPREDNISOLONE SOD SUCC 40 MG/ML VIAL 1ML IV SCH (06:00)
--- NOTE | 2019-01-02 06:26 | NUR ---
Received report from ER nurse.
[2019-01-02 06:33] LABS: WBC,URINE (MAN) 0-5 /HPF (0-5)
[2019-01-02 06:34] LABS: AMORPHOUS SEDIMENT,URINE MODERATE (FEW); BACTERIA,URINE MODERATE /HPF; EPITHELIAL CELLS,URINE FEW /LPF
[2019-01-02] MEDS ORDERED: FINASTERIDE5 MG PO (07:23)
[2019-01-02] MEDS ORDERED: OMEPRAZOLE40 MG PO (07:23)
[2019-01-02] MEDS ORDERED: FLOMAX0.4 MG PO (07:30)
[2019-01-02] MEDS ORDERED: SERTRALINE HCL50 MG PO (07:30)
[2019-01-02] MEDS ORDERED: XARELTO20 MG PO (07:30)
--- NOTE | 2019-01-02 07:30 | NUR ---
Patient admitted to unit from ER. Patient resting in bed at this time. Patient is AAox3. Patient lung rothman diminished to auscultation and some wheezing noted as well. Patient is on O2 at 2L NC. Bowel sounds present x4. 2+ edema noted to left lower extremity. Small dark wound noted on right foot second digit. Patient states it is from her shoes and toes rubbing together. Heels soft and boggy. Heel protectors applied. Red rash noted all over body. No drainage noted. small red scaly patches. no c/o itching at this time. Patient sacral area red but no open areas noted. Air mattress applied to bed. Purewick catheter in place for frequent voiding. Left wrist 22G in place.
[2019-01-02] MEDS ORDERED: MULTIPLE VITAM1 EAC1 PO (07:33)
[2019-01-02] MEDS: METOPROLOL TARTRATE 25 MG TAB PO SCH ×2 (07:46→17:00)
[2019-01-02] MEDS: POTASSIUM CHLORIDE 20 MEQ TAB CR PO SCH ×3 (08:06→20:53)
[2019-01-02] MEDS: FUROSEMIDE 40 MG TAB PO SCH ×2 (08:06→17:00)
[2019-01-02] MEDS: FAMOTIDINE 20 MG/2 ML VIAL IV SCH ×2 (08:06→17:00)
[2019-01-02] MEDS: METHYLPREDNISOLONE SOD SUCC 40 MG/ML VIAL 1ML IV SCH ×3 (08:06→21:44)
[2019-01-02] MEDS: LORATADINE 10 MG TAB PO SCH (08:06)
[2019-01-02] MEDS: METOLAZONE 5 MG TAB PO SCH (08:06)
--- NOTE | 2019-01-02 08:15 | NUR ---
RCD REPORT PT IS ALERT AND ORIENTED PT RESTING ON BED NO SIGNS OF ANY DISTRESS NOTED IV PATENT PT HAVE RASHES ALL OVER THE BODY NO C/O ITCHING PT ON TELEY BP 90/52 MM HG BED LOW AND LOCKED CALL LIGHT IN REACH
[2019-01-02] MEDS: INSULIN REGULAR, HUMAN 100 UNIT/1 ML 3ML VIAL SQ SCH ×4 (08:17→20:55)
[2019-01-02] MEDS ORDERED: FAMOTIDINE 20 MG TAB PO SCH (09:00)
[2019-01-02] MEDS ORDERED: LOSARTAN POTASSIUM 100 MG TAB PO SCH (09:00)
--- NOTE | 2019-01-02 10:00 | NUR ---
PT RESTING ON BED HR 102/MT BP 97/52 MM/HG
--- NOTE | 2019-01-02 10:10 | NUR ---
WOUND CARE NURSE INITIAL CONSULTATION. 83 YEAR OLD FEMALE ADMITTED TO [facility] WITH DX OF ALLERGIC REACTION CAUSED BY A DRUG AND CHRONIC A FIB. HEAD TO TOE SKIN ASSESSMENT PERFORMED TODAY. PT PRESENTS WITH GENERALIZED RASH WELL WITH A DRY AND STABLE ESCHAR TO RIGHT SECOND TOE THAT MEASURES APPROXIMATELY 0.3X0.3X0.1CM. 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 NO OTHER AREAS OF CONCERN NOTED AT THIS TIME. NO S/S OF INFECTION. LABS: WBC: 13.54 ALB: 3.2 RECOMMENDATIONS CONTINUE WITH IV STEROIDS AND BENADRYL FOR ALLERGIC REACTION CONTINUE WITH ALTERNATING LOW AIR LOSS MATTRESS CONTINUE WITH BILATERAL HEEL PROTECTORS. TURN PT EVERY TWO HOURS AND PRN. MONITOR RIGHT SECOND TOE ESCHAR DAILY THANKS DR. PARRISH FOR THIS CONSULTATION. Addendum: 01/02/19 at 1018 by Caty Toure RN Amended: Links added.
[2019-01-02] MEDS: SILVER SULFADIAZINE 50GM CREAM TOP SCH (12:00)
--- NOTE | 2019-01-02 12:00 | NUR ---
PT RESTING ON BED SHE WORKED WITH PT HR 97/MT
[2019-01-02 14:18] LABS: CREATINE KINASE MB 3.1 ng/mL (0-5.0)
--- NOTE | 2019-01-02 15:03 | NUR ---
Nutrition Screen Note RD Recommendation for Physician: -Continue current diet as ordered Plan of Care: RD following, monitoring for tolerance and adequacy Nutrition reason for involvement: Nutrition Risk Trigger MST Primary Diagnose(s): Allergic reaction caused by a drug, chronic A fib PMH: Hypertension, diabetes, atrial fibrillation, hyperlipidemia. Ht: 67in Wt: 225lb BMI: 35.2kg/m2 IBW: 135lb +/- 10% RD Assessment: (01/02) Chart reviewed. Labs and meds reviewed. 83yo F, who was admitted for allergic reaction. Visited pt in the room. Pt reported good appetite with 100% observed lunch intake. No complains of nausea or vomiting. Pt denied any chewing or swallowing difficulty. 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 Weight has been stable. Will continue to monitor and follow. Current Diet: ADA 1800 Malnutrition Evaluation (01/02/2019) The patient does not meet criteria for a specified degree of malnutrition at this time. Will re-evaluate at follow-up as appropriate. Diet Education Needs Assessment: Diet education not indicated. Nutrition Care Level: low Signed: Tiarra Melendrez, , RD, LD
[2019-01-02] MEDS ORDERED: WARFARIN SOD 2.5 MG TAB PO SCH (17:00)
--- NOTE | 2019-01-02 19:05 | NUR ---
PT RESTING ON BED BED SIDE REPORT GIVEN TO ONCOMING NURSE
[2019-01-02] MEDS: ATORVASTATIN 20 MG TAB PO SCH (20:53)
[2019-01-02 22:12] LABS: CREATINE KINASE MB 3.9 ng/mL (0-5.0)
[2019-01-03] VITALS (7 sets, daily range): BP systolic 92–131; BP diastolic 57–90
--- NOTE | 2019-01-03 01:19 | NUR ---
Bp rechecked 109/67 mmhg.
[2019-01-03] MEDS: METHYLPREDNISOLONE SOD SUCC 40 MG/ML VIAL 1ML IV SCH ×3 (04:04→16:00)
--- NOTE | 2019-01-03 05:45 | NUR ---
Patient has periods of confusion Dr. Thakur is aware.
[2019-01-03 06:35] LABS: BASOPHILS % 0.1 % (0.0-1.0); HEMATOCRIT 33.6 % (34.2-44.1); HEMOGLOBIN 11.5 g/dL (12.0-16.0); LYMPHOCYTES # (AUTO) 0.8 (1.0-3.2); MEAN CORPUSCULAR HEMOGLOBIN 31.3 pg (28-32); MEAN CORPUSCULAR HGB CONC 34.2 g/dL (31-35); MEAN CORPUSCULAR VOLUME 91.3 fL (81-99); MONOCYTES # (AUTO) 0.4 (0.2-0.8); MONOCYTES % 3.7 % (4.4-11.3); NEUTROPHILS # (AUTO) 10.1 (2.1-6.9); NEUTROPHILS % 88.2 % (38.7-80.0); PLATELET COUNT 148 x10e3/uL (140-360); RED BLOOD COUNT 3.68 x10e6/uL (3.6-5.1); RED CELL DISTRIBUTION WIDTH 14.5 % (11.7-14.4)
[2019-01-03 06:40] LABS: INR 3.31; PROTHROMBIN TIME 34.4 seconds (11.9-14.5)
[2019-01-03 06:52] LABS: ALBUMIN 3.2 g/dL (3.5-5.0); ALBUMIN/GLOBULIN RATIO 0.8 (0.8-2.0); ANION GAP 16.6 mmol/L (8-16); CALCIUM 9.9 mg/dL (8.4-10.2); CREATININE, SERUM 2.17 mg/dL (0.57-1.11); POTASSIUM 5.6 mmol/L (3.5-5.1)
--- NOTE | 2019-01-03 07:05 | NUR ---
RCD PT AT BED PT IS ALERT AND CONFUSED PT TRYING TO TAKE OFF TELEY AND IV LINE IV PATENT BED LOW AND LOCKED CALL LIGHT IN REACH
[2019-01-03] MEDS: INSULIN REGULAR, HUMAN 100 UNIT/1 ML 3ML VIAL SQ SCH ×4 (07:30→21:32)
--- NOTE | 2019-01-03 08:30 | NUR ---
PAGED DR PARRISH AND NOTIFIED WENDI MATTHEW GOT THE ORDER TO STOP POTASSIUM
[2019-01-03] MEDS: LORATADINE 10 MG TAB PO SCH (09:00)
[2019-01-03] MEDS: FUROSEMIDE 40 MG TAB PO SCH ×2 (09:00→16:33)
[2019-01-03] MEDS: METOPROLOL TARTRATE 25 MG TAB PO SCH ×2 (09:00→16:33)
[2019-01-03] MEDS: SILVER SULFADIAZINE 50GM CREAM TOP SCH (09:00)
[2019-01-03] MEDS: METOLAZONE 5 MG TAB PO SCH (09:00)
[2019-01-03] MEDS: FAMOTIDINE 20 MG/2 ML VIAL IV SCH ×2 (09:00→16:33)
--- NOTE | 2019-01-03 09:00 | NUR ---
PT SIT ON THE BED SIDE COMMODE AND HAD BOWEL MOVEMENT AND WENT BACK TO BED
--- NOTE | 2019-01-03 11:00 | NUR ---
PT RESTING ON BED NO SIGNS OF ANY DISTRESS NOTED VITAL SIGNS STABLE
--- NOTE | 2019-01-03 12:30 | NUR ---
PT SIT ON BED SIDE COMMODE VOIDED AND SIT ON THE CHAIR FOR 20 MTS
--- NOTE | 2019-01-03 13:28 | NUR ---
AC TO SUPERVISOR LONG GOODS PAGED AND TALKED DR PARRISH REGARDING DISCHARGE HE SAID NOT TODAY
--- NOTE | 2019-01-03 14:10 | NUR ---
PT CAME AND WORK WITH PATIENT AFTER PT RESTING ON BED NO SIGNS OF ANY DISTRESS NOTED
--- NOTE | 2019-01-03 14:50 | NUR ---
Visit made by the Spiritual Care Department Pastoral Visitor, Maya Pennington. PV provided pastoral presence, prayer, hospitality, and supportive listening. Pastoral Visitor informed pt/family of the scope of Customer Engineering Specialist Services and availability. HARVEY FLOWERS Insurance Policy Clerk Spiritual Care Department O: [phone] Pager: [phone] ([phone] number calling from)
--- NOTE | 2019-01-03 16:00 | NUR ---
PT RESTING ON BED SHE TOOK OF THE LEADS OFF ,FIXED EVERY THING THEN PT RESTING ON BED
--- NOTE | 2019-01-03 18:54 | NUR ---
PT RESTING ON BED BED SIDE REPORT GIVEN TO ONCOMING NURSE
[2019-01-03] MEDS: ATORVASTATIN 20 MG TAB PO SCH (21:29)
[2019-01-03 22:36] LABS: BASOPHILS % 0.1 % (0.0-1.0); HEMATOCRIT 32.1 % (34.2-44.1); HEMOGLOBIN 10.9 g/dL (12.0-16.0); LYMPHOCYTES # (AUTO) 0.9 (1.0-3.2); LYMPHOCYTES % 6.5 % (18.0-39.1); MEAN CORPUSCULAR HEMOGLOBIN 30.5 pg (28-32); MEAN CORPUSCULAR VOLUME 89.9 fL (81-99); MONOCYTES # (AUTO) 0.5 (0.2-0.8); MONOCYTES % 3.4 % (4.4-11.3); NEUTROPHILS # (AUTO) 12.5 (2.1-6.9); NEUTROPHILS % 88.9 % (38.7-80.0); PLATELET COUNT 162 x10e3/uL (140-360); RED BLOOD COUNT 3.57 x10e6/uL (3.6-5.1); RED CELL DISTRIBUTION WIDTH 14.2 % (11.7-14.4)
[2019-01-03 22:51] LABS: ALBUMIN 3.1 g/dL (3.5-5.0); ALBUMIN/GLOBULIN RATIO 0.9 (0.8-2.0); ANION GAP 15.1 mmol/L (8-16); CALCIUM 9.8 mg/dL (8.4-10.2); CREATININE, SERUM 2.4 mg/dL (0.57-1.11)
[2019-01-03 22:52] LABS: POTASSIUM 4.1 mmol/L (3.5-5.1)
--- NOTE | 2019-01-03 23:15 | Diagnostic Imaging Report ---
Examination: CT head without contrast Clinical Indication: Confusion. Technique: Transaxial noncontrast images from the skull base through the vertex were obtained. Sagittal and coronal reformatted images were done. Dose modulation, iterative reconstruction, and/or weight based adjustment of the mA/kV was utilized to reduce the radiation dose to as low as reasonably achievable. Comparison: Head CT dated 11/24/2018. Findings: Scalp: No abnormalities. Bones: Intact. No fractures. No blastic or lytic lesions. Brain sulci: Mild volume loss for patient's age. Ventricles: No hydrocephalus. Extra-axial space: No abnormalities. Parenchyma: There are subtle patchy areas of low-attenuation within subcortical and periventricular white matter, nonspecific, but could represent microvascular ischemic disease. No masses, hemorrhage, or acute or chronic cortical based vascular insults. Suprasellar region: No abnormalities. Craniocervical junction: The foramen magnum is patent. No Chiari one malformation. Incidental findings: Atherosclerotic calcification of the cavernous and supraclinoid internal carotid arteries. Impression: 1. No acute intracranial finding when compared to prior head CT dated 11/24/2018. 2. Unchanged mild chronic microvascular ischemic change and volume loss. Signed by: Dr. Maribel Shankar M.D. on 01/03/2019 11:12 PM
[2019-01-04] VITALS (9 sets, daily range): BP systolic 98–116; BP diastolic 58–96
[2019-01-04] MEDS: LORAZEPAM INJ 2 MG/ML VIAL IV PRN (06:04)
[2019-01-04 08:17] LABS: BASOPHILS % 0.1 % (0.0-1.0); EOSINOPHILS % 0.2 % (0.0-6.0); HEMATOCRIT 33.3 % (34.2-44.1); LYMPHOCYTES # (AUTO) 0.8 (1.0-3.2); MEAN CORPUSCULAR HEMOGLOBIN 30.1 pg (28-32); MEAN CORPUSCULAR VOLUME 91.2 fL (81-99); MONOCYTES # (AUTO) 0.8 (0.2-0.8); MONOCYTES % 6.3 % (4.4-11.3); NEUTROPHILS # (AUTO) 11.3 (2.1-6.9); NEUTROPHILS % 86.6 % (38.7-80.0); PLATELET COUNT 175 x10e3/uL (140-360); RED BLOOD COUNT 3.65 x10e6/uL (3.6-5.1); RED CELL DISTRIBUTION WIDTH 14.3 % (11.7-14.4)
--- NOTE | 2019-01-04 08:21 | NUR ---
Called daughter Adriana to make her aware we would be performing straight cath to obtain urine culture. Daughter okayed
[2019-01-04 08:32] LABS: ANION GAP 14.7 mmol/L (8-16); CALCIUM 9.9 mg/dL (8.4-10.2); CREATININE, SERUM 2.06 mg/dL (0.57-1.11); POTASSIUM 3.7 mmol/L (3.5-5.1)
[2019-01-04] MEDS: METOPROLOL TARTRATE 25 MG TAB PO SCH ×3 (09:00→18:14)
[2019-01-04] MEDS: FUROSEMIDE 40 MG TAB PO SCH ×3 (09:00→18:00)
[2019-01-04] MEDS: INSULIN REGULAR, HUMAN 100 UNIT/1 ML 3ML VIAL SQ SCH ×4 (09:49→20:27)
[2019-01-04] MEDS: FAMOTIDINE 20 MG/2 ML VIAL IV SCH ×2 (09:49→18:00)
[2019-01-04] MEDS: LORATADINE 10 MG TAB PO SCH (10:43)
[2019-01-04] MEDS: METOLAZONE 5 MG TAB PO SCH (10:44)
[2019-01-04 11:12] LABS: LYMPHOCYTES % (MANUAL) 8 % (19-48); MONOCYTES % (MANUAL) 6 % (3.4-9.0); NEUTROPHILS % (MANUAL) 84 % (40-74); PLATELET ESTIMATE ADEQUATE; PLATELET MORPHOLOGY COMMENT NORMAL; RBC MORPHOLOGY COMMENT NORMAL
--- NOTE | 2019-01-04 13:39 | NUR ---
EDUCATED ABOUT IMM, SIGNED, FILED IN CHART, WITH COPY LEFT WITH FAMILY AT BEDSIDE.
[2019-01-04] MEDS: SILVER SULFADIAZINE 50GM CREAM TOP SCH (17:53)
[2019-01-04] MEDS: ATORVASTATIN 20 MG TAB PO SCH (20:30)
[2019-01-05] VITALS (10 sets, daily range): BP systolic 103–138; BP diastolic 61–100
[2019-01-05] MEDS: LORAZEPAM INJ 2 MG/ML VIAL IV PRN (02:38)
--- NOTE | 2019-01-05 06:43 | NUR ---
core checker notified of pt's consult for Dr. Shelton
[2019-01-05] MEDS: INSULIN REGULAR, HUMAN 100 UNIT/1 ML 3ML VIAL SQ SCH ×4 (07:30→20:36)
[2019-01-05 08:41] LABS: BASOPHILS % 0.3 % (0.0-1.0); EOSINOPHILS # (AUTO) 0.1 (0.0-0.4); EOSINOPHILS % 1.3 % (0.0-6.0); HEMATOCRIT 34.6 % (34.2-44.1); HEMOGLOBIN 11.4 g/dL (12.0-16.0); LYMPHOCYTES # (AUTO) 1.1 (1.0-3.2); LYMPHOCYTES % 10.4 % (18.0-39.1); MEAN CORPUSCULAR HEMOGLOBIN 29.8 pg (28-32); MEAN CORPUSCULAR HGB CONC 32.9 g/dL (31-35); MEAN CORPUSCULAR VOLUME 90.6 fL (81-99); MONOCYTES # (AUTO) 1.2 (0.2-0.8); MONOCYTES % 11.7 % (4.4-11.3); NEUTROPHILS # (AUTO) 7.6 (2.1-6.9); NEUTROPHILS % 74.8 % (38.7-80.0); PLATELET COUNT 179 x10e3/uL (140-360); RED BLOOD COUNT 3.82 x10e6/uL (3.6-5.1); RED CELL DISTRIBUTION WIDTH 14.1 % (11.7-14.4)
[2019-01-05] MEDS: FUROSEMIDE 40 MG TAB PO SCH ×2 (09:00→17:12)
[2019-01-05] MEDS: METOPROLOL TARTRATE 25 MG TAB PO SCH ×2 (09:00→17:36)
[2019-01-05 09:02] LABS: ALBUMIN 2.9 g/dL (3.5-5.0); ALBUMIN/GLOBULIN RATIO 0.8 (0.8-2.0); CREATININE, SERUM 1.73 mg/dL (0.57-1.11); MAGNESIUM 1.5 MG/DL (1.3-2.1)
--- NOTE | 2019-01-05 10:15 | NUR ---
ST NOTE: Order acknowledged for BSE, pt givenAtivan during the night and sleeping soundly. Will return later today. Handoff to AZUCENA Lamar
[2019-01-05] MEDS: FAMOTIDINE 20 MG/2 ML VIAL IV SCH ×2 (10:58→17:12)
--- NOTE | 2019-01-05 15:31 | NUR ---
ST NOTE: Attempted to see pt for BSE at 3:30, pt still sleeping soundly after having pain medication last night. Will return in AM on 01/06/19. Handoff to AZUCENA Lamar
[2019-01-05] MEDS ORDERED: POTASSIUM CHL 40 MEQ in SODIUM CHLORIDE 0.9% 250ML 230 ML IV ONE (17:00)
[2019-01-05] MEDS ORDERED: POTASSIUM CHLORIDE 20 MEQ TAB CR PO ONE (17:00)
[2019-01-05] MEDS: METOLAZONE 5 MG TAB PO SCH (17:01)
[2019-01-05] MEDS: LORATADINE 10 MG TAB PO SCH (17:12)
[2019-01-05] MEDS: SILVER SULFADIAZINE 50GM CREAM TOP SCH (17:12)
[2019-01-05] MEDS: ATORVASTATIN 20 MG TAB PO SCH (20:18)
--- NOTE | 2019-01-05 22:20 | NUR ---
Pt transferred to room 201, report given to AZUCENA Mayen. Pt resting in bed, no complaints at this time.
[2019-01-06] VITALS (8 sets, daily range): BP systolic 111–136; BP diastolic 60–82
--- NOTE | 2019-01-06 07:00 | NUR ---
BEDSIDE SHIFT REPORT RECEIVED FROM THE COCOA BUTTER FILTER OPERATOR RN. PT DENIES NEEDS AT THIS TIME.
--- NOTE | 2019-01-06 07:01 | NUR ---
BED ALARM IS ON. BED IS AT THE LOWEST POSITION AND LOCKED. CALL LIGHT WITH IN EASY REACH. EDUCATED PT ABOUT FALL PRECAUTIONS AND INSTRUCTED PT TO CALL WHEN NEEDED.
--- NOTE | 2019-01-06 07:15 | NUR ---
PT POTASSIUM LEVEL IS LOW. PAGED DR PARRISH AND NEW ORDER RECEIVED.
--- NOTE | 2019-01-06 07:30 | NUR ---
PT POTASSIUM LEVEL IS LOW. PER DR. PARRISH, 40 MEQ K-DUR PO AT 8AM AND ANOTHER SAME DOSE AT 12 PM TODAY. INFORMED PHARMACY THE SAME.
[2019-01-06] MEDS ORDERED: LORAZEPAM INJ 2 MG/ML VIAL IM PRN (07:45)
[2019-01-06] MEDS ORDERED: LORAZEPAM 0.5 MG TAB PO PRN (07:45)
[2019-01-06] MEDS ORDERED: POTASSIUM CHLORIDE 20 MEQ TAB CR PO ONE ×2 (08:00→12:30)
[2019-01-06] MEDS: FAMOTIDINE 20 MG/2 ML VIAL IV SCH ×2 (08:25→17:30)
[2019-01-06] MEDS: LORATADINE 10 MG TAB PO SCH (08:26)
[2019-01-06] MEDS: FUROSEMIDE 40 MG TAB PO SCH ×2 (08:26→17:30)
[2019-01-06] MEDS: METOPROLOL TARTRATE 25 MG TAB PO SCH ×2 (08:27→17:30)
[2019-01-06] MEDS: METOLAZONE 5 MG TAB PO SCH (08:28)
[2019-01-06] MEDS: INSULIN REGULAR, HUMAN 100 UNIT/1 ML 3ML VIAL SQ SCH ×4 (08:41→21:00)
[2019-01-06] MEDS: SILVER SULFADIAZINE 50GM CREAM TOP SCH (09:00)
--- NOTE | 2019-01-06 10:20 | NUR ---
OKAY TO SWALLOW PER SPEECH EVALUATION
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
[2019-01-06] MEDS ORDERED: ONDANSETRON HCL 4 MG ORAL DISINTEGRATING TAB PO PRN (13:15)
--- NOTE | 2019-01-06 16:15 | NUR ---
PAGED DR. PARRISH REGARDING DISCHARGE PLAN. PER THE DR, WILL CHECK IMPROVEMENT ON PT DAY BY DAY. PT FAMILY AT BEDSIDE. PT FAMILY NOT DECIDED ABOUT DISCHARGE PLAN YET BUT WILL INFORM TOMORROW.
--- NOTE | 2019-01-06 19:10 | NUR ---
BEDSIDE SHIFT REPORT GIVEN TO THE CIGARETTE VENDOR RN. PT DENIED FURTHER NEEDS.
[2019-01-06] MEDS: ATORVASTATIN 20 MG TAB PO SCH (21:09)
[2019-01-07] VITALS (7 sets, daily range): BP systolic 108–141; BP diastolic 56–74
--- NOTE | 2019-01-07 07:00 | NUR ---
BEDSIDE SHIFT REPORT RECEIVED FROM THE BEAUTY ADVISOR RN. PT DENIES NEEDS AT THIS TIME.
[2019-01-07] MEDS: INSULIN REGULAR, HUMAN 100 UNIT/1 ML 3ML VIAL SQ SCH ×4 (07:25→21:00)
--- NOTE | 2019-01-07 07:58 | Progress Note ---
DATE: 01/07/2019 SUBJECTIVE: The patient is still very confused. Continues to be delirious. No complaints from nursing staff. No chest pain. No shortness of breath. No nausea, vomiting, or diarrhea. The patient has feeding and no complaints of with p.o. intake either. Currently asymptomatic. OBJECTIVE: VITAL SIGNS: Temperature is 96, respirations of 20, blood pressure is 132/69, pulse oximetry of 96% on 2 L of nasal cannula. HEENT: Normocephalic, atraumatic. Pupils are reactive to light and accommodation. CVS: Irregularly irregular. ABDOMEN: Nontender, nondistended. EXTREMITIES: No clubbing. No cyanosis. Positive for rash, which is better. ASSESSMENT: Delirium, hypertension, history of atrial fibrillation, history of diabetes mellitus, chronic kidney disease and leukocytosis. The patient's white count is 10.10, down from 13,000. The patient's medications reviewed, continue on current medication. The patient is also being seen by Dr. Shelton for delirium. Continue with lorazepam as needed. Further recommendation per clinical course. Labs will be done. Urine culture was no growth in 36 to 48 hours. PLAN: Continue monitoring the patient. Further recommendation as per clinical course. We will continue to monitor her delirium and possible discharge in 1 to 2 days to SNF. MD RESHMA Medina/SELENAL /[id number]
[2019-01-07] MEDS: FAMOTIDINE 20 MG/2 ML VIAL IV SCH ×2 (08:26→17:30)
[2019-01-07] MEDS: LORATADINE 10 MG TAB PO SCH (08:30)
[2019-01-07] MEDS: FUROSEMIDE 40 MG TAB PO SCH ×2 (08:30→17:30)
[2019-01-07] MEDS: METOPROLOL TARTRATE 25 MG TAB PO SCH ×2 (08:30→17:30)
[2019-01-07] MEDS: METOLAZONE 5 MG TAB PO SCH (08:31)
[2019-01-07] MEDS: SILVER SULFADIAZINE 50GM CREAM TOP SCH (08:31)
--- NOTE | 2019-01-07 19:00 | NUR ---
BEDSIDE SHIFT REPORT GIVEN TO THE CUSTOMER SUCCESS MANAGER RN. PT DENIED FURTHER NEEDS
--- NOTE | 2019-01-07 19:25 | NUR ---
Patient received sitting up in bed. AAO x 2. Patient had no c/o pain. Respirations even and unlabored on 3L NC; wheezing noted. Safety measures implemented. Patient instructed to call for assistance when needed. Call light within reach.
[2019-01-07] MEDS: ATORVASTATIN 20 MG TAB PO SCH (21:00)
[2019-01-08] VITALS (8 sets, daily range): BP systolic 114–157; BP diastolic 63–74
[2019-01-08 06:39] LABS: BASOPHILS # (AUTO) 0.1 (0.0-0.1); BASOPHILS % 0.9 % (0.0-1.0); EOSINOPHILS # (AUTO) 0.2 (0.0-0.4); EOSINOPHILS % 1.8 % (0.0-6.0); HEMATOCRIT 40.9 % (34.2-44.1); HEMOGLOBIN 13.3 g/dL (12.0-16.0); LYMPHOCYTES # (AUTO) 1.6 (1.0-3.2); MEAN CORPUSCULAR HEMOGLOBIN 29.6 pg (28-32); MEAN CORPUSCULAR HGB CONC 32.5 g/dL (31-35); MEAN CORPUSCULAR VOLUME 91.1 fL (81-99); MONOCYTES # (AUTO) 0.9 (0.2-0.8); MONOCYTES % 9.5 % (4.4-11.3); NEUTROPHILS # (AUTO) 6.3 (2.1-6.9); NEUTROPHILS % 66.9 % (38.7-80.0); PLATELET COUNT 206 x10e3/uL (140-360); RED BLOOD COUNT 4.49 x10e6/uL (3.6-5.1); RED CELL DISTRIBUTION WIDTH 13.8 % (11.7-14.4)
--- NOTE | 2019-01-08 07:00 | NUR ---
Shift report given to oncoming nurse regarding patient status.
--- NOTE | 2019-01-08 07:00 | NUR ---
BEDSIDE SHIFT REPORT RECEIVED FROM THE SOLID PROPELLANT PROCESSOR RN. PT DENIES NEEDS AT THIS TIME.
[2019-01-08] MEDS: INSULIN REGULAR, HUMAN 100 UNIT/1 ML 3ML VIAL SQ SCH ×4 (07:30→21:00)
--- NOTE | 2019-01-08 08:07 | NUR ---
Met with Dr. Pickering this morning. He stated he is going to place order for PT eval and treat, and order for SNF
[2019-01-08] MEDS: METOLAZONE 5 MG TAB PO SCH (09:25)
[2019-01-08] MEDS: FUROSEMIDE 40 MG TAB PO SCH ×2 (09:25→17:40)
[2019-01-08] MEDS: LORATADINE 10 MG TAB PO SCH (09:25)
[2019-01-08] MEDS: SILVER SULFADIAZINE 50GM CREAM TOP SCH (09:26)
[2019-01-08] MEDS: METOPROLOL TARTRATE 25 MG TAB PO SCH ×2 (09:26→17:40)
[2019-01-08] MEDS: FAMOTIDINE 20 MG/2 ML VIAL IV SCH ×2 (09:28→17:40)
--- NOTE | 2019-01-08 11:08 | Progress Note ---
DATE: SUBJECTIVE: This is an 83-year-old female who comes in with delirium, acute encephalopathy. The patient also had urinary tract infection. The patient is currently still nonverbal. Speech volume is very limited. The patient has no chest pain and has no problems on yesterday's shift. OBJECTIVE: VITAL SIGNS: Temperature is 96.1, pulse of 123, respirations are 17, blood pressure is 157/69, pulse oximetry of 96% on 2 L of nasal cannula. HEENT: Normocephalic, atraumatic. Pupils are reactive to light and accommodation. CVS: S1, S2 normal. Regular rate and rhythm. ABDOMEN: Nontender, nondistended. EXTREMITIES: No clubbing, no cyanosis. Positive for trace edema and positive for rash, which is much better. ASSESSMENT: 1. Delirium. 2. Probable encephalopathy. 3. Hypertension. 4. History of atrial fibrillation. 5. Diabetes mellitus. 6. Chronic kidney diseases. 7. Leukocytosis. The patient's white count has trended down. Delirium apparently is better. PLAN: Plan is to continue medications at this time. A physical therapy will be ordered to look or assess her physical function and possible SNF. Further recommendation per clinical course. We will continue to monitor the patient. MD RESHMA Medina/AMELIA /[id number]
--- NOTE | 2019-01-08 17:33 | NUR ---
PT C/O HEADACHE. NEW ORDER RECEIVED.
--- NOTE | 2019-01-08 17:34 | NUR ---
PT C/ O HEADACHE. PAGED DR. PARRISH. NEW ORDER RECEIVED FOR TYLENOL.
--- NOTE | 2019-01-08 19:00 | NUR ---
BEDSIDE SHIFT REPORT GIVEN TO THE ASSISTANT PROJECT ENGINEER RN. PT DENIED FURTHER NEEDS.
[2019-01-08] MEDS: ACETAMINOPHEN 325 MG TAB PO PRN (19:17)
[2019-01-08] MEDS: ATORVASTATIN 20 MG TAB PO SCH (20:28)
[2019-01-09] VITALS (7 sets, daily range): BP systolic 106–134; BP diastolic 56–71
[2019-01-09 05:16] LABS: INR 0.93
[2019-01-09 05:26] LABS: BASOPHILS # (AUTO) 0.1 (0.0-0.1); BASOPHILS % 0.6 % (0.0-1.0); EOSINOPHILS # (AUTO) 0.1 (0.0-0.4); EOSINOPHILS % 1.4 % (0.0-6.0); HEMATOCRIT 40.9 % (34.2-44.1); HEMOGLOBIN 13.7 g/dL (12.0-16.0); LYMPHOCYTES # (AUTO) 1.5 (1.0-3.2); LYMPHOCYTES % 15.5 % (18.0-39.1); MEAN CORPUSCULAR HGB CONC 33.5 g/dL (31-35); MEAN CORPUSCULAR VOLUME 89.5 fL (81-99); NEUTROPHILS # (AUTO) 6.9 (2.1-6.9); NEUTROPHILS % 69.4 % (38.7-80.0); PLATELET COUNT 225 x10e3/uL (140-360); RED BLOOD COUNT 4.57 x10e6/uL (3.6-5.1)
[2019-01-09 05:55] LABS: CREATININE, SERUM 1.23 mg/dL (0.57-1.11)
--- NOTE | 2019-01-09 06:23 | NUR ---
[place]arro 2.0, received orders from dr matta.
[2019-01-09] MEDS ORDERED: POTASSIUM CHLORIDE 20 MEQ TAB CR PO ONE ×3 (06:30→14:30)
[2019-01-09] MEDS ORDERED: TRAMADOL HCL 50 MG TAB PO PRN (07:00)
[2019-01-09] MEDS: INSULIN REGULAR, HUMAN 100 UNIT/1 ML 3ML VIAL SQ SCH ×4 (07:27→21:20)
[2019-01-09] MEDS: FAMOTIDINE 20 MG/2 ML VIAL IV SCH (08:30)
[2019-01-09] MEDS: FUROSEMIDE 40 MG TAB PO SCH ×2 (08:30→17:59)
[2019-01-09] MEDS: METOLAZONE 5 MG TAB PO SCH (08:30)
[2019-01-09] MEDS: METOPROLOL TARTRATE 25 MG TAB PO SCH ×2 (08:30→17:59)
[2019-01-09] MEDS: LORATADINE 10 MG TAB PO SCH (08:30)
--- NOTE | 2019-01-09 09:30 | NUR ---
EVELYNE SPOKE TO PATIENT GRANDDAUGHTER/ POA REGARDING PATIENT PLAN OF CARE AND DISCHARGE PLAN. PATIENT STILL UNABLE TO AMBULATE INDEPENDENTLY AND NEEDS MOD ASSISTANCE. DR. PARRISH ORDERED CUSTODIAL PLACEMENT FOR PT AND CONTINUED MEDICAL CARE. PATIENT GRAND DAUGHTER SHERMAN SAMREEN AGREEABLE TO CUSTODIAL FACILITY PLACEMENT. SHERMAN GIVEN CHOICES. AND FAMILY HAS CHOSEN [facility]. TELEPHONE CONSENT WITH DUAL SIGNATURE BY MYSELF AND EVELYNE ANGEL. CLINICAL SENT TO [facility]. PENDING ACCEPTANCE AND BED FOR TRANSFER. [facility] Address: [facility] [address], [place] [address] FAX: [phone] RTF GIVEN TO MATERIAL HANDLING WAREHOUSE SUPERVISOR ON [employer]S[facility] 2.
[2019-01-09] MEDS: SILVER SULFADIAZINE 50GM CREAM TOP SCH (10:00)
[2019-01-09 11:36] LABS: EOSINOPHILS % (MANUAL) 1 % (0-7); LYMPHOCYTES % (MANUAL) 13 % (19-48); MONOCYTES % (MANUAL) 9 % (3.4-9.0); NEUTROPHILS % (MANUAL) 77 % (40-74)
[2019-01-09 11:37] LABS: PLATELET ESTIMATE ADEQUATE; PLATELET MORPHOLOGY COMMENT NORMAL; RBC MORPHOLOGY COMMENT NORMAL
[2019-01-09] MEDS ORDERED: POTASSIUM CHLORIDE 20 MEQ TAB CR PO SCH (14:30)
--- NOTE | 2019-01-09 14:42 | NUR ---
Nutrition Screen Note RD Recommendation for Physician: - Continue current diet as ordered Plan of Care: Patient has been screened and assessed for nutrition risk. At this time, the patient does not pose any nutrition risk. No further nutrition intervention is warranted at this time. Will re-evaluate if consulted by medical staff. Nutrition reason for involvement: Follow up Primary Diagnose(s): Allergic reaction caused by a drug, chronic A fib PMH: Hypertension, diabetes, atrial fibrillation, hyperlipidemia. Ht: 67in Wt: 225lb; 204lb BMI: 35.2kg/m2 IBW: 135lb +/- 10% RD Assessment: (01/09) Visited pt in the room. Pt was sleeping. Per RN, pt was eating well. PCT recorded 75-100% meal intake since admission. K at 2.0, ordered to replete. Rash has resolved. Current diet is appropriate and adequate. (01/02) Chart reviewed. Labs and meds reviewed. 83yo F, who was admitted for allergic reaction. Visited pt in the room. Pt reported good appetite with 100% observed lunch intake. No complains of nausea or vomiting. Pt denied any chewing or swallowing difficulty. 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 Weight has been stable. Will continue to monitor and follow. Current Diet: ADA 1800 Malnutrition Evaluation (01/02/2019) The patient does not meet criteria for a specified degree of malnutrition at this time. Will re-evaluate at follow-up as appropriate. Diet Education Needs Assessment: Diet education not indicated. Nutrition Care Level: low Signed: Tiarra Melendrez, MS, RD, LD
--- NOTE | 2019-01-09 15:52 | NUR ---
CM SPOKE TO [facility] REGARDING MISSING INFORMATION. PATIENT NEEDS UPDATED PT NOTE TO INITIATE PLACEMENT PATIENT ALSO NEEDS VISION TESTING TO SEE IF THEY HAVE IMPAIRED VISION FOR GREENHOUSE GROWER PLACEMENT. CM LEFT NOTE FOR DR. PARRISH TO CONDUCT VISION ASSESSMENT. PATIENT MAY ALSO HAVE EARLY SIGNS OF DEMENTIA. PSYCH TO ASSESS AND DOCUMENT IF THIS IS INDEED THE CASE. [facility] THESE DOCUMENTS FOR INITIATION AND ACCEPTANCE. [facility] (P)[phone] (F) [phone] CM SPOKE TO [facility] AT [facility].
[2019-01-09] MEDS: WARFARIN SOD 2.5 MG TAB PO SCH (17:59)
--- NOTE | 2019-01-09 19:15 | NUR ---
PATIENT RECEIVED. PATIENT IS RESTING IN BED, ALERT AND ORIENTED. RESP EVEN AND UNLABORED. NO ACUTE DISTRESS NOTED. PATIENT DENIED OF ANY PAIN OR DISCOMFORT AT THIS TIME. CALL LIGHT WITH REACH. BED LOW/LOCKED. CONTINUE TO MONITOR CLOSELY
[2019-01-09] MEDS: ATORVASTATIN 20 MG TAB PO SCH (21:47)
[2019-01-10] VITALS (7 sets, daily range): BP systolic 102–135; BP diastolic 61–74
[2019-01-10 06:13] LABS: ALBUMIN 3.1 g/dL (3.5-5.0); ALBUMIN/GLOBULIN RATIO 0.8 (0.8-2.0); ANION GAP 16.8 mmol/L (8-16); CALCIUM 10.2 mg/dL (8.4-10.2); CREATININE, SERUM 1.22 mg/dL (0.57-1.11)
[2019-01-10 06:33] LABS: POTASSIUM 2.8 mmol/L (3.5-5.1)
--- NOTE | 2019-01-10 06:40 | NUR ---
NOTIFIED DR PARRISH K 2.8 THIS AM. NEW ORDER RECEIVED
[2019-01-10] MEDS ORDERED: POTASSIUM CHLORIDE 20 MEQ TAB CR PO NR ×3 (07:00→11:00)
[2019-01-10] MEDS: FAMOTIDINE 20 MG TAB PO SCH ×2 (08:28→16:17)
[2019-01-10] MEDS: METOLAZONE 5 MG TAB PO SCH (08:28)
[2019-01-10] MEDS: METOPROLOL TARTRATE 25 MG TAB PO SCH ×2 (08:28→16:17)
[2019-01-10] MEDS: FUROSEMIDE 40 MG TAB PO SCH ×2 (08:28→16:16)
[2019-01-10] MEDS: INSULIN REGULAR, HUMAN 100 UNIT/1 ML 3ML VIAL SQ SCH ×4 (08:28→20:53)
[2019-01-10] MEDS: LORATADINE 10 MG TAB PO SCH (08:28)
[2019-01-10] MEDS: SILVER SULFADIAZINE 50GM CREAM TOP SCH (09:00)
[2019-01-10] MEDS: WARFARIN SOD 2.5 MG TAB PO SCH (16:16)
[2019-01-10] MEDS: ACETAMINOPHEN 325 MG TAB PO PRN (20:38)
[2019-01-10] MEDS: ATORVASTATIN 20 MG TAB PO SCH (20:38)
[2019-01-11] VITALS: BP 94/52
[2019-01-11 04:00] VITALS: BP 142/60
[2019-01-11 05:08] LABS: BASOPHILS # (AUTO) 0.1 (0.0-0.1); BASOPHILS % 0.5 % (0.0-1.0); EOSINOPHILS # (AUTO) 0.1 (0.0-0.4); EOSINOPHILS % 1.1 % (0.0-6.0); HEMATOCRIT 42.7 % (34.2-44.1); HEMOGLOBIN 14.3 g/dL (12.0-16.0); LYMPHOCYTES # (AUTO) 1.4 (1.0-3.2); MEAN CORPUSCULAR HEMOGLOBIN 30.1 pg (28-32); MEAN CORPUSCULAR HGB CONC 33.5 g/dL (31-35); MEAN CORPUSCULAR VOLUME 89.9 fL (81-99); NEUTROPHILS # (AUTO) 8.6 (2.1-6.9); NEUTROPHILS % 75.8 % (38.7-80.0); PLATELET COUNT 198 x10e3/uL (140-360); RED BLOOD COUNT 4.75 x10e6/uL (3.6-5.1)
[2019-01-11 05:29] LABS: ALBUMIN 3.1 g/dL (3.5-5.0); ALBUMIN/GLOBULIN RATIO 0.7 (0.8-2.0); ANION GAP 17.9 mmol/L (8-16); CALCIUM 10.4 mg/dL (8.4-10.2); CREATININE, SERUM 1.36 mg/dL (0.57-1.11)
[2019-01-11 05:30] LABS: POTASSIUM 2.9 mmol/L (3.5-5.1)
--- NOTE | 2019-01-11 05:40 | NUR ---
NOTIFIED DR FRANCOIS BOOTHE K-2.9. NEW ORDER RECEIVED
[2019-01-11] MEDS ORDERED: POTASSIUM CHLORIDE 20 MEQ TAB CR PO ONE ×3 (06:00→08:00)
--- NOTE | 2019-01-11 07:10 | NUR ---
RECEIVED PATIENT AWAKE RESTING IN BED NO SIGNS OF DISTRESS. BED LOW, WHEELS LOCKED, SIDE RAILS X2. CALL LIGHT IN REACH WILL CONTINUE TO MONITOR PATIENT.
[2019-01-11] MEDS: INSULIN REGULAR, HUMAN 100 UNIT/1 ML 3ML VIAL SQ SCH ×4 (07:30→21:00)
[2019-01-11] MEDS: FAMOTIDINE 20 MG TAB PO SCH ×2 (08:36→17:13)
[2019-01-11] MEDS: FUROSEMIDE 40 MG TAB PO SCH ×2 (08:37→17:13)
[2019-01-11] MEDS: METOPROLOL TARTRATE 25 MG TAB PO SCH ×2 (08:37→16:35)
[2019-01-11] MEDS: METOLAZONE 5 MG TAB PO SCH (08:37)
[2019-01-11] MEDS: LORATADINE 10 MG TAB PO SCH (08:37)
[2019-01-11] MEDS: SILVER SULFADIAZINE 50GM CREAM TOP SCH (08:37)
[2019-01-11 08:38] VITALS: BP 112/76
--- NOTE | 2019-01-11 09:15 | NUR ---
PATIENT A/O X3, EVEN RESPIRATIONS ON RA. BOWEL SOUNDS ACTIVE, NO EDEMA. PATIENT HAD BM THIS MORNING. NEEDS ASSISTANCE WITH STANDING. PUREWICK IN PLACE DRAINING CLEAR YELLOW URINE. NO PAIN OR DISCOMFORT AT THIS TIME. VITAL SIGNS STABLE. BED LOW, WHEELS LOCKED, CALL LIGHT IN REACH. EDUCATED PATIENT TO CALL NURSE FOR ASSISTANCE.
[2019-01-11 11:36] VITALS: BP 112/76
--- NOTE | 2019-01-11 13:57 | NUR ---
IMM EXPLAINED TO PT'S GRAND DTR SHERMAN JOLLEY OVER PHONE, CONSENTED OVER PHONE AND IMM PLACED IN CHART COPY TO PT IN CARE TRANSITIONS FOLDER CALL PLACED TO PT'S DTR BESSIE FAYE [phone]; NO ANSWER; LEFT VOICE MAIL PT REFUSES TO SIGN CONSENTS; REFERS TO HER DTR AND OR GRAND DTR REC'D CALL BACK FROM DTR BESSIE; SHE IS REQUESTING TO SPEAK WITH CM ABOUT SNF TRANSFER NOTIFIED CM OF ABOVE
--- NOTE | 2019-01-11 15:36 | NUR ---
EVELYNE SPOKE TO DR. PARRISH. DR. PARRISH INFORMED THAT PATIENT NEEDS DOCUMENTATION SUPPORTING THE PATIENT'S DEMENTIA PRIOR TO INITIATING SHELTER PLACEMENT. DR. PARRISH STATES HE WILL COME AND COMPLETE DOCUMENTATION TODAY SO WE CAN INITIATE PLACEMENT. EVELYNE SPOKE TO PATIENT DAUGHTER/ BABITA LÓPEZ REGARDING SITUATION. BEDSIDE RN NOTIFIED OF PENDING NOTE FOR INITIATION. [facility] NOTIFIED THAT ONCE WE RECEIVE NOTE WE WILL SEND MAR AND NOTE TO FACILITY. Addendum: 01/11/19 at 1540 by Angelica King CM [facility] P)[phone] (f) [phone]
[2019-01-11] MEDS: WARFARIN SOD 2.5 MG TAB PO SCH (17:13)
[2019-01-11 17:24] VITALS: BP 101/55
[2019-01-11] MEDS: ACETAMINOPHEN 325 MG TAB PO PRN (17:34)
[2019-01-11 20:00] VITALS: BP 107/54
[2019-01-11] MEDS: ATORVASTATIN 20 MG TAB PO SCH (22:21)
[2019-01-12] VITALS: BP 112/73
[2019-01-12 04:00] VITALS: BP 126/86
[2019-01-12 05:14] LABS: INR 1.22
[2019-01-12 05:32] LABS: ALBUMIN 3.2 g/dL (3.5-5.0); ALBUMIN/GLOBULIN RATIO 0.7 (0.8-2.0); CALCIUM 10.5 mg/dL (8.4-10.2); CREATININE, SERUM 1.31 mg/dL (0.57-1.11)
[2019-01-12] MEDS ORDERED: POTASSIUM CHLORIDE 20 MEQ TAB CR PO STA (05:43)
[2019-01-12] MEDS: INSULIN REGULAR, HUMAN 100 UNIT/1 ML 3ML VIAL SQ SCH ×3 (08:30→16:48)
[2019-01-12 08:49] VITALS: BP 133/61
[2019-01-12] MEDS: FAMOTIDINE 20 MG TAB PO SCH ×2 (08:51→16:47)
[2019-01-12] MEDS: METOLAZONE 5 MG TAB PO SCH (08:51)
[2019-01-12] MEDS: LORATADINE 10 MG TAB PO SCH (08:51)
[2019-01-12] MEDS: METOPROLOL TARTRATE 25 MG TAB PO SCH ×2 (08:51→16:47)
[2019-01-12] MEDS: FUROSEMIDE 40 MG TAB PO SCH ×2 (08:51→16:47)
[2019-01-12 08:53] VITALS: BP 133/61
[2019-01-12] MEDS: SILVER SULFADIAZINE 50GM CREAM TOP SCH (09:30)
[2019-01-12] MEDS ORDERED: POTASSIUM CHLORIDE 20 MEQ TAB CR PO SCH ×2 (10:00→14:00)
[2019-01-12 11:52] VITALS: BP 128/61
--- NOTE | 2019-01-12 15:23 | NUR ---
DISCHARGE DISPOSITION PATIENT DISCHARGING TO SHELTER FACILITY FOR CORRECTION PLACEMENT: [facility] Address: [address], [place] [address] CALL REPORT: ROOM# [id number] PASSR FAXED TO [facility] BY CHIDI DREW TO [phone]. BEDSIDE, AZUCENA CASTORENA NOTIFIED. RTF INITIATED AND RN TO FINISH WITH CLINICAL INFORMATION. Addendum: 01/12/19 at 1530 by Angelica King CM PATIENT DAUGHTER BESSIE FAYE NOTIFIED @ [phone]. NO QUESTIONS AT THIS TIME.
[2019-01-12 16:17] VITALS: BP 119/73
[2019-01-12] MEDS: WARFARIN SOD 2.5 MG TAB PO SCH (16:47)
--- NOTE | 2019-01-12 16:51 | NUR ---
Report called to AZUCENA Gomez at [facility]. Patient is going to room 156. Patient's daughter, Adriana Polanco was also notified of patient being transferred today.
--- NOTE | 2019-01-13 05:30 | Discharge Summary ---
DISCHARGE DIAGNOSES: 1. Allergic reaction with rash. 2. Acute encephalopathy, toxic type. 3. Diabetes . 4. Hypertension. HISTORY OF PRESENT ILLNESS AND HOSPITAL COURSE: See hospital chart for full details. The patient was admitted to the emergency room with acute severe allergic reaction with hives and rash throughout the entire body, so she was brought and placed O2 and steroids, which helped significantly with the rash, where unfortunately, the patient was noted to start developing acute encephalopathy, most likely secondary to steroids couple of days. At the time of discharge, it was felt that the patient was too weak to go home, so she is being sent to a retirement facility for further rehabilitative care. Please see hospital chart for details. MD YASMINE Velez/AMELAI /[id number]
== END 2019-01-12 18:51 | DRG 606 ==
LOC: ER 02:49 → ERHOLD 05:47 → IMCU 07:37 → OBSVTOIN 01-04 08:31 → MED/SURG2 01-05 22:20
PROVIDERS: ADMIT Internal Medicine; ATTEND Internal Medicine
DX: L50.0 Allergic urticaria (principal); G92 Toxic encephalopathy; N39.0 Urinary tract infection, site not specified; T38.0X5A Adverse effect of glucocorticoids and synthetic analogues, initial encounter; I48.91 Unspecified atrial fibrillation; Z79.01 Long term (current) use of anticoagulants; Z97.0 Presence of artificial eye; Z89.422 Acquired absence of other left toe(s); E78.5 Hyperlipidemia, unspecified; I48.2 Chronic atrial fibrillation; E11.22 Type 2 diabetes mellitus with diabetic chronic kidney disease; I12.9 Hypertensive chronic kidney disease with stage 1 through stage 4 chronic kidney disease, or unspecified chronic kidney disease; N18.3 Chronic kidney disease, stage 3 (moderate); Z79.4 Long term (current) use of insulin; E87.6 Hypokalemia; E66.9 Obesity, unspecified; Z68.31 Body mass index [BMI] 31.0-31.9, adult
CPT/HCPCS: 36415; 70450; 71045; 80048; 80053; 81001; 82140; 82550; 82553; 82948; 83605; 83735; 83880; 84484; 85025; 85610; 85730; 87086; 93005; 96372; 97139; 99284; G0378; J1200; J1817; J2060; J2920; J2930; Q0162

== ENCOUNTER 2022-06-29 12:20 | Inpatient (IN) | payer MEDICARE ==
[~2022-06-29] VITALS: Ht 170.2 cm; Wt 114.3 kg
[~2022-06-29 12:20] MED LIST changes: +FAMOTIDINE20 MG PO; +FINASTERIDE5 MG PO; +FLOMAX0.4 MG PO; +MULTIPLE VITAM1 EAC1 PO; +OMEPRAZOLE40 MG PO; +SERTRALINE HCL50 MG PO; +SSD TOP; +XARELTO20 MG PO
[2022-06-29] MEDS ORDERED: SODIUM CHLORIDE FLUSH 10 ML SYR IV PRN (12:45)
[2022-06-29] MEDS ORDERED: ONDANSETRON HCL INJ 2MG/ML 2ML 2 MG/ML VIAL IV STA (13:02)
[2022-06-29 13:05] LABS: BASOPHILS % 0.4 % (0.0-1.0); EOSINOPHILS # (AUTO) 0.2 (0.0-0.4); EOSINOPHILS % 2.1 % (0.0-6.0); HEMATOCRIT 39.4 % (34.2-44.1); HEMOGLOBIN 12.6 g/dL (12.0-16.0); LYMPHOCYTES # (AUTO) 1.3 (1.0-3.2); LYMPHOCYTES % 15.6 % (18.0-39.1); MEAN CORPUSCULAR HEMOGLOBIN 28.5 pg (28-32); MEAN CORPUSCULAR VOLUME 89.1 fL (81-99); MONOCYTES # (AUTO) 0.7 (0.2-0.8); MONOCYTES % 8.3 % (4.4-11.3); PLATELET COUNT 152 x10e3/uL (140-360); RED BLOOD COUNT 4.42 x10e6/uL (3.6-5.1); RED CELL DISTRIBUTION WIDTH 15.3 % (11.7-14.4)
[2022-06-29 13:20] LABS: INR 2.08; PROTHROMBIN TIME 23.5 seconds (11.9-14.5)
[2022-06-29 13:21] LABS: PARTIAL THROMBOPLASTIN TIME 37.7 seconds (23.8-35.5)
[2022-06-29 13:27] LABS: ALBUMIN 3.3 g/dL (3.5-5.0); ALBUMIN/GLOBULIN RATIO 0.9 (0.8-2.0); ANION GAP 16.5 mmol/L (8-16); CALCIUM 10.2 mg/dL (8.4-10.2); CREATININE, SERUM 1.43 mg/dL (0.57-1.11); POTASSIUM 5.5 mmol/L (3.5-5.1)
[2022-06-29 13:55] LABS: CLARITY,URINE CLEAR (CLEAR); COLOR,URINE YELLOW (YELLOW); KETONES,URINE NEGATIVE (NEGATIVE); LEUKOCYTE ESTERASE ,URINE NEGATIVE (NEGATIVE); NITRITE,URINE NEGATIVE (NEGATIVE); PROTEIN,URINE DIPSTICK NEGATIVE (NEGATIVE); URINE UROBILINOGEN 0.2 mg/dL (0.2 - 1)
[2022-06-29 13:56] LABS: BACTERIA,URINE MODERATE /HPF; RBC,URINE 0-5 /HPF (0-5)
[2022-06-29 13:57] LABS: EPITHELIAL CELLS,URINE FEW /LPF; MUCUS,URINE FEW (RARE)
[2022-06-29] MEDS ORDERED: FUROSEMIDE INJ 10 MG/ML 4 ML VIAL IV ONE (16:00)
[2022-06-29] MEDS ORDERED: FUROSEMIDE INJ 10 MG/ML 4 ML VIAL ONE (16:08)
[2022-06-29] MEDS ORDERED: DEXTROSE 50% SYRINGE 50 ML IV PRN (16:30)
[2022-06-29] MEDS: INSULIN REGULAR, HUMAN 100 UNIT/1 ML SQ SCH ×2 (17:21→21:00)
[2022-06-29 20:13] VITALS: BP 95/62
[2022-06-29 22:03] VITALS: BP 113/65
[2022-06-30] VITALS: BP 115/51
[2022-06-30] MEDS ORDERED: COZAAR25 MG PO (00:07)
[2022-06-30] MEDS ORDERED: ONDANSETRON ODT4 MG PO (00:07)
[2022-06-30] MEDS ORDERED: VITAMIN D325 MCG PO (00:07)
[2022-06-30] MEDS ORDERED: LIDOCAINE PAIN1 EACH TOP (00:07)
[2022-06-30] MEDS ORDERED: SODIUM CHLORIDE1 GM PO (00:07)
[2022-06-30] MEDS ORDERED: SILTUSSIN DM C118 ML (00:07)
[2022-06-30] MEDS ORDERED: WARFARIN SODIUM1 MG PO (00:07)
[2022-06-30] MEDS ORDERED: METOPROLOL SUCC25 MG PO (00:07)
[2022-06-30] MEDS ORDERED: MIRALAX17 GM PO (00:07)
[2022-06-30] MEDS ORDERED: ACETAMINOPHEN325 M1 PO (00:07)
[2022-06-30] MEDS ORDERED: BENZONATATE100 MG PO (00:07)
[2022-06-30] MEDS ORDERED: SENNA8.6 MG (00:07)
[2022-06-30] MEDS ORDERED: SPIRONOLACTONE50 MG PO (00:07)
[2022-06-30] MEDS ORDERED: IPRAT-ALBUT 0.5-3 ML INH (00:07)
[2022-06-30] MEDS ORDERED: HYDROXYZINE HCL25 MG PO (00:07)
[2022-06-30] MEDS ORDERED: COUGH DROPS5 MG MM (00:07)
[2022-06-30] MEDS ORDERED: TRADJENTA5 MG PO (00:07)
[2022-06-30] MEDS ORDERED: PATADAY2.5 ML OP (00:07)
[2022-06-30] MEDS ORDERED: GUAIFENESIN/DEXTROMETHORPHAN LIQD 5 ML UDC PO PRN (00:13)
[2022-06-30 04:00] VITALS: BP 93/56
[2022-06-30] MEDS: FUROSEMIDE INJ 10 MG/ML 4 ML VIAL IV SCH ×2 (04:00→15:36)
[2022-06-30 05:38] LABS: BASOPHILS % 0.5 % (0.0-1.0); EOSINOPHILS # (AUTO) 0.2 (0.0-0.4); EOSINOPHILS % 2.3 % (0.0-6.0); HEMATOCRIT 34.6 % (34.2-44.1); HEMOGLOBIN 11.7 g/dL (12.0-16.0); LYMPHOCYTES # (AUTO) 1.3 (1.0-3.2); MEAN CORPUSCULAR HEMOGLOBIN 29.1 pg (28-32); MEAN CORPUSCULAR HGB CONC 33.8 g/dL (31-35); MEAN CORPUSCULAR VOLUME 86.1 fL (81-99); MONOCYTES # (AUTO) 0.9 (0.2-0.8); MONOCYTES % 11.4 % (4.4-11.3); NEUTROPHILS # (AUTO) 5.5 (2.1-6.9); NEUTROPHILS % 68.9 % (38.7-80.0); PLATELET COUNT 153 x10e3/uL (140-360); RED BLOOD COUNT 4.02 x10e6/uL (3.6-5.1); RED CELL DISTRIBUTION WIDTH 14.9 % (11.7-14.4)
[2022-06-30 06:17] LABS: ALBUMIN 2.8 g/dL (3.5-5.0); ALBUMIN/GLOBULIN RATIO 0.9 (0.8-2.0); ANION GAP 16.7 mmol/L (8-16); CALCIUM 9.6 mg/dL (8.4-10.2); CREATININE, SERUM 1.31 mg/dL (0.57-1.11); POTASSIUM 5.7 mmol/L (3.5-5.1)
[2022-06-30] MEDS: INSULIN REGULAR, HUMAN 100 UNIT/1 ML SQ SCH ×5 (07:30→21:19)
[2022-06-30 08:21] VITALS: BP 96/52
[2022-06-30] MEDS: NON-FORMULARY MEDICATION (Linagliptin (Tradjenta) 5 MG) PO SCH (09:00)
[2022-06-30] MEDS: OLOPATADINE 0.2% OP SCH (09:00)
[2022-06-30] MEDS: LORATADINE 10 MG TAB PO SCH (09:23)
[2022-06-30] MEDS: SODIUM CHLORIDE 1 GM TAB PO SCH ×3 (09:23→15:36)
[2022-06-30] MEDS: BENZONATATE 100 MG CAP PO SCH ×3 (09:23→21:14)
[2022-06-30] MEDS: FINASTERIDE 5 MG TAB PO SCH (09:23)
[2022-06-30] MEDS: METOPROLOL SUCCINATE 25 MG TAB XL PO SCH ×2 (09:24→21:15)
[2022-06-30] MEDS: POLYETHYLENE GLYCOL 3350 17 GM PACK PO SCH (09:24)
[2022-06-30 12:00] VITALS: BP 101/51
[2022-06-30] MEDS: ONDANSETRON HCL INJ 2MG/ML 2ML 2 MG/ML VIAL IV PRN ×2 (13:53→17:41)
[2022-06-30 17:30] VITALS: BP 88/61
[2022-06-30] MEDS: WARFARIN SOD 2.5 MG TAB PO SCH (17:41)
[2022-06-30] MEDS ORDERED: SOD POLYSTYRENE SULFONATE SUSP 15 GM/60 ML BTL PO ONE (18:15)
[2022-06-30 20:00] VITALS: BP 88/61
[2022-06-30] MEDS: ACETAMINOPHEN 325 MG TAB PO PRN (21:28)
[2022-06-30] MEDS: HYDROXYZINE HCL 25 MG TAB PO PRN (23:47)
[2022-07-01] MEDS: FUROSEMIDE INJ 10 MG/ML 4 ML VIAL IV SCH ×3 (03:28→21:51)
[2022-07-01 05:42] LABS: BASOPHILS % 0.3 % (0.0-1.0); EOSINOPHILS # (AUTO) 0.2 (0.0-0.4); EOSINOPHILS % 3.3 % (0.0-6.0); HEMATOCRIT 36.2 % (34.2-44.1); HEMOGLOBIN 11.7 g/dL (12.0-16.0); LYMPHOCYTES # (AUTO) 1.2 (1.0-3.2); LYMPHOCYTES % 15.7 % (18.0-39.1); MEAN CORPUSCULAR HEMOGLOBIN 28.7 pg (28-32); MEAN CORPUSCULAR HGB CONC 32.3 g/dL (31-35); MEAN CORPUSCULAR VOLUME 88.7 fL (81-99); MONOCYTES # (AUTO) 0.8 (0.2-0.8); MONOCYTES % 10.9 % (4.4-11.3); NEUTROPHILS # (AUTO) 5.1 (2.1-6.9); NEUTROPHILS % 69.1 % (38.7-80.0); PLATELET COUNT 152 x10e3/uL (140-360); RED BLOOD COUNT 4.08 x10e6/uL (3.6-5.1); RED CELL DISTRIBUTION WIDTH 14.9 % (11.7-14.4)
[2022-07-01 06:01] LABS: ANION GAP 14.8 mmol/L (8-16); CALCIUM 9.5 mg/dL (8.4-10.2); CREATININE, SERUM 1.26 mg/dL (0.57-1.11); POTASSIUM 4.8 mmol/L (3.5-5.1)
[2022-07-01 06:04] LABS: INR 2.27; PROTHROMBIN TIME 25.2 seconds (11.9-14.5)
[2022-07-01 06:09] LABS: MAGNESIUM 0.6 MG/DL (1.3-2.1)
[2022-07-01 06:24] LABS: THYROID STIMULATING HORMONE 3.87 uIU/mL (0.350-4.940)
[2022-07-01] MEDS ORDERED: MAGNESIUM SULFATE 2GM/50ML 50 ML IV ONE ×4 (06:30→18:30)
[2022-07-01] MEDS ORDERED: SODIUM CHLORIDE 0.9% 100 ML ONE (06:36)
[2022-07-01] MEDS: INSULIN REGULAR, HUMAN 100 UNIT/1 ML SQ SCH ×4 (07:30→20:49)
[2022-07-01 07:54] VITALS: BP 107/59
[2022-07-01 08:00] VITALS: BP 107/59
[2022-07-01] MEDS: METOPROLOL SUCCINATE 25 MG TAB XL PO SCH (09:00)
[2022-07-01] MEDS: NON-FORMULARY MEDICATION (Linagliptin (Tradjenta) 5 MG) PO SCH (09:00)
[2022-07-01] MEDS: POLYETHYLENE GLYCOL 3350 17 GM PACK PO SCH (09:00)
[2022-07-01] MEDS: OLOPATADINE 0.2% OP SCH (09:00)
[2022-07-01] MEDS: LORATADINE 10 MG TAB PO SCH (09:31)
[2022-07-01] MEDS: FINASTERIDE 5 MG TAB PO SCH (09:31)
[2022-07-01] MEDS: HYDROXYZINE HCL 25 MG TAB PO PRN (09:31)
[2022-07-01] MEDS: BENZONATATE 100 MG CAP PO SCH ×3 (09:31→21:51)
[2022-07-01] MEDS: SODIUM CHLORIDE 1 GM TAB PO SCH ×3 (09:31→16:56)
[2022-07-01] MEDS: BALSAM PERU/CASTOR OIL 60 GM OINT...G. TP SCH (10:28)
[2022-07-01 11:28] VITALS: BP 92/63
[2022-07-01] MEDS: ONDANSETRON HCL INJ 2MG/ML 2ML 2 MG/ML VIAL IV PRN (13:12)
[2022-07-01] MEDS: MIDODRINE HCL 5 MG TABLET PO SCH ×2 (14:44→21:51)
[2022-07-01 16:39] VITALS: BP 96/62
[2022-07-01] MEDS: WARFARIN SOD 2.5 MG TAB PO SCH (16:56)
[2022-07-01 20:00] VITALS: BP 93/58
[2022-07-01 20:34] VITALS: BP 93/58
[2022-07-02] VITALS (7 sets, daily range): BP systolic 98–113; BP diastolic 52–88
[2022-07-02 05:13] LABS: BASOPHILS % 0.3 % (0.0-1.0); EOSINOPHILS # (AUTO) 0.2 (0.0-0.4); EOSINOPHILS % 2.6 % (0.0-6.0); HEMOGLOBIN 12.5 g/dL (12.0-16.0); LYMPHOCYTES # (AUTO) 1.1 (1.0-3.2); LYMPHOCYTES % 12.2 % (18.0-39.1); MEAN CORPUSCULAR HEMOGLOBIN 28.8 pg (28-32); MEAN CORPUSCULAR HGB CONC 33.8 g/dL (31-35); MEAN CORPUSCULAR VOLUME 85.3 fL (81-99); MONOCYTES % 11.5 % (4.4-11.3); NEUTROPHILS # (AUTO) 6.5 (2.1-6.9); NEUTROPHILS % 72.7 % (38.7-80.0); PLATELET COUNT 151 x10e3/uL (140-360); RED BLOOD COUNT 4.34 x10e6/uL (3.6-5.1); RED CELL DISTRIBUTION WIDTH 14.7 % (11.7-14.4)
[2022-07-02 05:27] LABS: INR 2.25
[2022-07-02 05:32] LABS: ANION GAP 15.4 mmol/L (8-16); CALCIUM 10.1 mg/dL (8.4-10.2); CREATININE, SERUM 1.16 mg/dL (0.57-1.11); POTASSIUM 4.4 mmol/L (3.5-5.1)
[2022-07-02] MEDS: FUROSEMIDE INJ 10 MG/ML 4 ML VIAL IV SCH ×2 (06:10→14:40)
[2022-07-02] MEDS: MIDODRINE HCL 5 MG TABLET PO SCH ×2 (06:10→14:40)
[2022-07-02] MEDS: INSULIN REGULAR, HUMAN 100 UNIT/1 ML SQ SCH ×3 (07:30→16:30)
[2022-07-02] MEDS: BALSAM PERU/CASTOR OIL 60 GM OINT...G. TP SCH (09:00)
[2022-07-02] MEDS: POLYETHYLENE GLYCOL 3350 17 GM PACK PO SCH (09:00)
[2022-07-02] MEDS: NON-FORMULARY MEDICATION (Linagliptin (Tradjenta) 5 MG) PO SCH (09:00)
[2022-07-02] MEDS: OLOPATADINE 0.2% OP SCH (09:00)
[2022-07-02] MEDS: FINASTERIDE 5 MG TAB PO SCH (10:13)
[2022-07-02] MEDS: HYDROXYZINE HCL 25 MG TAB PO PRN (10:13)
[2022-07-02] MEDS: BENZONATATE 100 MG CAP PO SCH ×2 (10:13→14:40)
[2022-07-02] MEDS: LORATADINE 10 MG TAB PO SCH (10:14)
[2022-07-02] MEDS: ONDANSETRON HCL INJ 2MG/ML 2ML 2 MG/ML VIAL IV PRN ×2 (10:20→18:06)
[2022-07-02] MEDS: SODIUM CHLORIDE 1 GM TAB PO SCH ×3 (10:27→17:23)
[2022-07-02] MEDS: WARFARIN SOD 2.5 MG TAB PO SCH (17:23)
[2022-07-03] VITALS (7 sets, daily range): BP systolic 101–114; BP diastolic 50–96
[2022-07-03] MEDS: BENZONATATE 100 MG CAP PO SCH ×4 (00:17→21:56)
[2022-07-03] MEDS: MIDODRINE HCL 5 MG TABLET PO SCH ×4 (00:17→21:55)
[2022-07-03] MEDS: FUROSEMIDE INJ 10 MG/ML 4 ML VIAL IV SCH ×4 (00:18→21:55)
[2022-07-03] MEDS: INSULIN REGULAR, HUMAN 100 UNIT/1 ML SQ SCH ×5 (00:19→21:00)
[2022-07-03 04:57] LABS: BASOPHILS % 0.5 % (0.0-1.0); EOSINOPHILS # (AUTO) 0.2 (0.0-0.4); EOSINOPHILS % 2.8 % (0.0-6.0); HEMATOCRIT 35.4 % (34.2-44.1); HEMOGLOBIN 12.1 g/dL (12.0-16.0); LYMPHOCYTES # (AUTO) 1.3 (1.0-3.2); LYMPHOCYTES % 14.7 % (18.0-39.1); MEAN CORPUSCULAR HEMOGLOBIN 29.1 pg (28-32); MEAN CORPUSCULAR HGB CONC 34.2 g/dL (31-35); MEAN CORPUSCULAR VOLUME 85.1 fL (81-99); MONOCYTES % 11.7 % (4.4-11.3); NEUTROPHILS # (AUTO) 6.1 (2.1-6.9); NEUTROPHILS % 69.8 % (38.7-80.0); PLATELET COUNT 155 x10e3/uL (140-360); RED BLOOD COUNT 4.16 x10e6/uL (3.6-5.1); RED CELL DISTRIBUTION WIDTH 14.5 % (11.7-14.4)
[2022-07-03 05:13] LABS: ANION GAP 15.9 mmol/L (8-16); CREATININE, SERUM 1.03 mg/dL (0.57-1.11); POTASSIUM 3.9 mmol/L (3.5-5.1)
[2022-07-03] MEDS: NON-FORMULARY MEDICATION (Linagliptin (Tradjenta) 5 MG) PO SCH (09:00)
[2022-07-03] MEDS: POLYETHYLENE GLYCOL 3350 17 GM PACK PO SCH ×2 (09:00→09:20)
[2022-07-03] MEDS: OLOPATADINE 0.2% OP SCH (09:00)
[2022-07-03] MEDS: SODIUM CHLORIDE 1 GM TAB PO SCH ×3 (09:19→16:54)
[2022-07-03] MEDS: FINASTERIDE 5 MG TAB PO SCH (09:20)
[2022-07-03] MEDS: LORATADINE 10 MG TAB PO SCH (09:20)
[2022-07-03] MEDS: BALSAM PERU/CASTOR OIL 60 GM OINT...G. TP SCH (09:20)
[2022-07-03] MEDS: HYDROXYZINE HCL 25 MG TAB PO PRN ×2 (09:26→22:01)
[2022-07-03] MEDS: ONDANSETRON HCL INJ 2MG/ML 2ML 2 MG/ML VIAL IV PRN ×2 (09:29→17:00)
[2022-07-03] MEDS ORDERED: FUROSEMIDE INJ 10 MG/ML 4 ML VIAL IV ONE (15:30)
[2022-07-03] MEDS: WARFARIN SOD 2.5 MG TAB PO SCH (16:54)
[2022-07-04] VITALS: BP 109/57
[2022-07-04 04:00] VITALS: BP 104/70
[2022-07-04 05:45] LABS: ANION GAP 18.6 mmol/L (8-16); CREATININE, SERUM 1.01 mg/dL (0.57-1.11); POTASSIUM 3.6 mmol/L (3.5-5.1)
[2022-07-04] MEDS: FUROSEMIDE INJ 10 MG/ML 4 ML VIAL IV SCH ×3 (05:45→22:03)
[2022-07-04] MEDS: MIDODRINE HCL 5 MG TABLET PO SCH ×3 (05:45→22:03)
[2022-07-04] MEDS: INSULIN REGULAR, HUMAN 100 UNIT/1 ML SQ SCH ×4 (07:30→22:13)
[2022-07-04] MEDS: NON-FORMULARY MEDICATION (Linagliptin (Tradjenta) 5 MG) PO SCH (08:19)
[2022-07-04] MEDS: OLOPATADINE 0.2% OP SCH (08:19)
[2022-07-04 08:21] VITALS: BP 112/66
[2022-07-04] MEDS: LORATADINE 10 MG TAB PO SCH (08:27)
[2022-07-04] MEDS: POLYETHYLENE GLYCOL 3350 17 GM PACK PO SCH (08:27)
[2022-07-04] MEDS: BENZONATATE 100 MG CAP PO SCH ×3 (08:27→22:03)
[2022-07-04] MEDS: FINASTERIDE 5 MG TAB PO SCH (08:27)
[2022-07-04] MEDS: SODIUM CHLORIDE 1 GM TAB PO SCH ×3 (08:27→17:09)
[2022-07-04] MEDS: BALSAM PERU/CASTOR OIL 60 GM OINT...G. TP SCH (11:54)
[2022-07-04 12:02] VITALS: BP 102/60
[2022-07-04 16:03] VITALS: BP 101/74
[2022-07-04] MEDS: HYDROXYZINE HCL 25 MG TAB PO PRN (17:09)
[2022-07-04] MEDS: ONDANSETRON HCL INJ 2MG/ML 2ML 2 MG/ML VIAL IV PRN (17:10)
[2022-07-04] MEDS: WARFARIN SOD 2.5 MG TAB PO SCH (17:10)
[2022-07-04 20:00] VITALS: BP_SYST 101; BP_SYST 113; BP_DIAS 74; BP_DIAS 81
[2022-07-04] MEDS: ACETAMINOPHEN 325 MG TAB PO PRN (22:05)
[2022-07-05 00:45] VITALS: BP 111/63
[2022-07-05 04:00] VITALS: BP 101/66
[2022-07-05] MEDS: MIDODRINE HCL 5 MG TABLET PO SCH ×2 (06:03→14:17)
[2022-07-05] MEDS: FUROSEMIDE INJ 10 MG/ML 4 ML VIAL IV SCH ×2 (06:03→14:17)
[2022-07-05] MEDS: INSULIN REGULAR, HUMAN 100 UNIT/1 ML SQ SCH ×2 (08:33→12:04)
[2022-07-05] MEDS: LORATADINE 10 MG TAB PO SCH (08:46)
[2022-07-05] MEDS: HYDROXYZINE HCL 25 MG TAB PO PRN (08:46)
[2022-07-05] MEDS: BALSAM PERU/CASTOR OIL 60 GM OINT...G. TP SCH (08:46)
[2022-07-05] MEDS: BENZONATATE 100 MG CAP PO SCH ×2 (08:46→14:18)
[2022-07-05] MEDS: FINASTERIDE 5 MG TAB PO SCH (08:46)
[2022-07-05] MEDS: SODIUM CHLORIDE 1 GM TAB PO SCH ×2 (08:46→14:16)
[2022-07-05] MEDS: NON-FORMULARY MEDICATION (Linagliptin (Tradjenta) 5 MG) PO SCH (08:49)
[2022-07-05] MEDS: OLOPATADINE 0.2% OP SCH (08:49)
[2022-07-05] MEDS: POLYETHYLENE GLYCOL 3350 17 GM PACK PO SCH (08:49)
[2022-07-05 08:54] VITALS: BP 122/71
[2022-07-05 12:05] VITALS: BP 98/63
== END 2022-07-05 17:15 | DRG 683 ==
LOC: ER 12:32 → ERHOLD 16:26 → MED/SURG 20:35
PROVIDERS: ADMIT Internal Medicine; ATTEND Internal Medicine
DX: N17.9 Acute kidney failure, unspecified (principal); E87.1 Hypo-osmolality and hyponatremia; I13.0 Hypertensive heart and chronic kidney disease with heart failure and stage 1 through stage 4 chronic kidney disease, or unspecified chronic kidney disease; N39.0 Urinary tract infection, site not specified; J90 Pleural effusion, not elsewhere classified; J81.1 Chronic pulmonary edema; L03.116 Cellulitis of left lower limb; L03.115 Cellulitis of right lower limb; E87.5 Hyperkalemia; R11.0 Nausea; I87.2 Venous insufficiency (chronic) (peripheral); I48.91 Unspecified atrial fibrillation; I95.9 Hypotension, unspecified; E11.22 Type 2 diabetes mellitus with diabetic chronic kidney disease; R06.03 Acute respiratory distress; R33.9 Retention of urine, unspecified; E11.65 Type 2 diabetes mellitus with hyperglycemia; N18.30 Chronic kidney disease, stage 3 unspecified; I50.9 Heart failure, unspecified; E66.01 Morbid (severe) obesity due to excess calories; E83.42 Hypomagnesemia; F03.90 Unspecified dementia, unspecified severity, without behavioral disturbance, psychotic disturbance, mood disturbance, and anxiety; K21.9 Gastro-esophageal reflux disease without esophagitis; E78.5 Hyperlipidemia, unspecified; Z89.422 Acquired absence of other left toe(s); Z79.01 Long term (current) use of anticoagulants; Z79.84 Long term (current) use of oral hypoglycemic drugs; Z79.899 Other long term (current) drug therapy; Z68.39 Body mass index [BMI] 39.0-39.9, adult; Z66 Do not resuscitate
CPT/HCPCS: 36415; 51700; 71045; 71250; 74176; 80048; 80053; 81001; 82948; 83036; 83735; 83880; 83930; 83935; 84100; 84443; 84484; 85025; 85610; 85730; 87086; 93005; 93970; 94760; 99252; 99284; J0690; J0696; J1817; J1940; J2405; J3410; J3475; J7050